=== PATIENT | male | born 1960 | race Two or more races ===

== ENCOUNTER 2019-12-05 15:05 | Inpatient (IN) | payer OTHER ==
[~2019-12-05] VITALS: Ht 175.3 cm; Wt 59.5 kg
[~2019-12-05 15:05] MED LIST: HYDR-1421 PO; IBUP-781 PO
[2019-12-05] MEDS ORDERED: ONDANSETRON HCL 4 MG/2 ML VIAL IV ONE (15:45)
[2019-12-05 15:49] LABS: Basophils # (auto) 0 10 ^3/uL (0-0.2); Basophils % (auto) 0.2 % (0.0-2.0); Eosinophils # (auto) 0 10 ^3/uL (0-0.8); Eosinophils % (auto) 0.2 % (0.0-7.0); Hematocrit 49.1 % (41.0-53.0); Hemoglobin 16.7 g/dL (13.5-17.5); Lymphocytes # (auto) 1.1 10 ^3/uL (0.4-5.4); Lymphocytes % (auto) 11.5 % (10.0-50.0); Mean Corpuscular Hemoglobin 33.2 pg (28.0-32.0); Mean Corpuscular Volume 97.6 fL (80.0-100.0); Monocytes # (auto) 0.5 10 ^3/uL (0-1.3); Monocytes % (auto) 4.9 % (0.0-12.0); Neutrophils # (auto) 7.9 10 ^3/uL (1.6-8.6); Neutrophils % (auto) 83.2 % (37.0-80.0); Nucleated Red Blood Cells % 0.5 %; Platelet Count (auto) 242 10^3/uL (140-450); Red Blood Cells 5.03 10^6/uL (4.5-5.90); Red Cell Distribution Width 13.8 % (11.8-14.3); White Blood Cell 9.5 10^3/uL (4.4-10.8)
[2019-12-05] MEDS ORDERED: cloNIDine HCL 0.1 MG TAB PO ONE (16:00)
[2019-12-05 16:10] LABS: Albumin 3.9 g/dL (3.4-5.0); Calcium 9.4 mg/dL (8.5-10.1); Potassium 3.6 mmol/L (3.5-5.1)
[2019-12-05 16:12] LABS: BUN/Creatinine Ratio 12.3
[2019-12-05 16:14] LABS: Bilirubin, Total 1.4 mg/dL (0.2-1.0); Total Protein 7.7 g/dL (6.4-8.2)
[2019-12-05 16:16] LABS: Magnesium 2.2 mg/dL (1.6-2.6)
[2019-12-05] MEDS ORDERED: SODIUM CHLORIDE 0.9% 1,000 ML IV SCH (16:41)
[2019-12-05] MEDS ORDERED: LORazepam 0.5 MG TAB PO PRN (16:45)
[2019-12-05] MEDS ORDERED: DOCUSATE SOD 100 MG CAP PO PRN (16:45)
[2019-12-05] MEDS ORDERED: hydrALAZINE HCL 20 MG/ML VL IV PRN ×2 (16:45→19:15)
[2019-12-05] MEDS ORDERED: METOPROLOL SUCCINATE XL 50 MG TAB PO ONE (16:45)
[2019-12-05] MEDS ORDERED: ALUM & MAG HYDROX-SIMETH LIQ(MAALOX) 30 ML PO PRN (16:45)
[2019-12-05] MEDS ORDERED: HYDROcodone-ACET 5/325MG TAB PO PRN (16:45)
[2019-12-05] MEDS ORDERED: ACETAMINOPHEN 325 MG TAB PO PRN ×2 (16:45→19:15)
[2019-12-05] MEDS ORDERED: LABETALOL HCL 5 MG/ML 4ML SYRINGE IV ONE (16:45)
[2019-12-05] MEDS ORDERED: NITROGLYCERIN 0.4 MG SL TAB SL PRN (16:45)
[2019-12-05] MEDS ORDERED: MORPHINE SULF INJ 2 MG/ML SYRINGE 1ML IV PRN (16:45)
[2019-12-05 17:26] LABS: Cholesterol 212 mg/dL (< 200)
[2019-12-05 17:29] LABS: HDL Cholesterol 46 mg/dL (40-59); LDL Cholesterol 144 mg/dL (< 100); Triglycerides 207 mg/dL (< 150)
[2019-12-05 18:46] LABS: Urine WBC None Seen /hpf (0 - 3)
[2019-12-05 19:12] LABS: Amphetamine Screen, Urine NEGATIVE (NEGATIVE); Barbiturate Scree,Urine NEGATIVE (NEGATIVE); Benzodiazephine Screen, Urine NEGATIVE (NEGATIVE); Cannabinoid Screen, Urine NEGATIVE (NEGATIVE); Cocaine Screen, Urine NEGATIVE (NEGATIVE); Opiate Scree,Urine POSITIVE (NEGATIVE); Phencyclidine Screen, Urine NEGATIVE (NEGATIVE); Urine Bacteria NONE SEEN /hpf (None Seen); Urine Blood Negative /uL (Negative); Urine Mucus FEW (None Seen); Urine Specific Gravity 1.025 (1.001-1.035)
[2019-12-05] MEDS ORDERED: LORazepam 2MG/ML-1ML VIAL IV PRN (19:15)
[2019-12-05] MEDS: ONDANSETRON HCL 4 MG/2 ML VIAL IV PRN (19:41)
[2019-12-05] MEDS ORDERED: SOD CHL 0.45% 1,000 ML IV SCH (22:00)
[2019-12-05] MEDS ORDERED: ATORVASTATIN 20 MG TAB PO SCH (22:00)
[2019-12-05] MEDS ORDERED: HYDR-531 PO (23:21)
[2019-12-05 23:45] VITALS: BP 149/103
[2019-12-06] VITALS (10 sets, daily range): BP systolic 146–177; BP diastolic 88–115
[2019-12-06] MEDS: ONDANSETRON HCL 4 MG/2 ML VIAL IV PRN ×2 (03:44→09:01)
[2019-12-06 07:23] LABS: Basophils # (auto) 0 10 ^3/uL (0-0.2); Basophils % (auto) 0.2 % (0.0-2.0); Eosinophils # (auto) 0 10 ^3/uL (0-0.8); Eosinophils % (auto) 0.4 % (0.0-7.0); Hematocrit 45.2 % (41.0-53.0); Hemoglobin 15.8 g/dL (13.5-17.5); Lymphocytes # (auto) 1.2 10 ^3/uL (0.4-5.4); Lymphocytes % (auto) 20.4 % (10.0-50.0); Mean Corpuscular Hemoglobin 33.8 pg (28.0-32.0); Mean Corpuscular Hgb Conc. 34.9 g/dL (32.0-36.0); Mean Corpuscular Volume 96.8 fL (80.0-100.0); Monocytes # (auto) 0.4 10 ^3/uL (0-1.3); Monocytes % (auto) 6.2 % (0.0-12.0); Neutrophils # (auto) 4.2 10 ^3/uL (1.6-8.6); Neutrophils % (auto) 72.8 % (37.0-80.0); Nucleated Red Blood Cells % 0.1 %; Platelet Count (auto) 218 10^3/uL (140-450); Red Blood Cells 4.67 10^6/uL (4.5-5.90); Red Cell Distribution Width 13.4 % (11.8-14.3); White Blood Cell 5.8 10^3/uL (4.4-10.8)
[2019-12-06 07:33] LABS: Albumin 3.6 g/dL (3.4-5.0); Calcium 8.8 mg/dL (8.5-10.1); Magnesium 2.3 mg/dL (1.6-2.6); Potassium 3.4 mmol/L (3.5-5.1)
[2019-12-06 07:38] LABS: BUN/Creatinine Ratio 16.7; Bilirubin, Total 1.8 mg/dL (0.2-1.0); Phosphorus 2.6 mg/dL (2.5-4.90); Total Protein 6.8 g/dL (6.4-8.2)
[2019-12-06] MEDS ORDERED: LORazepam 2MG/ML-1ML VIAL IV PRN (09:00)
[2019-12-06] MEDS: ASPirin-EC 81 mg tab PO SCH (10:59)
[2019-12-06] MEDS: METOPROLOL SUCCINATE XL 50 MG TAB PO SCH (10:59)
[2019-12-06] MEDS ORDERED: METOCLOPRAMIDE HCL 5MG/ml INJ 2ml VIAL IV ONE (11:30)
[2019-12-06] MEDS ORDERED: HCTZ 25 MG TAB PO ONE (12:30)
[2019-12-06] MEDS ORDERED: cloNIDine HCL 0.1 MG TAB PO PRN (12:30)
[2019-12-06] MEDS ORDERED: POTASSIUM CHL 20MEQ/100ML 100 ML IV ONE (12:30)
[2019-12-06] MEDS ORDERED: amLODIPine BESYLATE 5 MG TAB PO ONE (12:30)
[2019-12-06] MEDS ORDERED: LOSARTAN POTASSIUM 50 MG TAB PO ONE (12:30)
[2019-12-06] MEDS: ATORVASTATIN 20 MG TAB PO SCH (21:41)
[2019-12-07] MEDS: ONDANSETRON HCL 4 MG/2 ML VIAL IV PRN ×2 (03:23→21:25)
[2019-12-07] MEDS: MORPHINE SULF INJ 2 MG/ML SYRINGE 1ML IV PRN ×2 (03:31→21:25)
[2019-12-07 05:00] VITALS: BP 157/105
[2019-12-07 08:41] VITALS: BP 157/98
[2019-12-07] MEDS: ASPirin-EC 81 mg tab PO SCH (09:37)
[2019-12-07] MEDS: LOSARTAN POTASSIUM 50 MG TAB PO SCH (09:37)
[2019-12-07] MEDS: amLODIPine BESYLATE 5 MG TAB PO SCH (09:37)
[2019-12-07] MEDS: METOPROLOL SUCCINATE XL 50 MG TAB PO SCH (09:38)
[2019-12-07] MEDS ORDERED: HCTZ 25 MG TAB PO SCH (10:00)
[2019-12-07 12:50] VITALS: BP 146/102
[2019-12-07 16:40] VITALS: BP 148/98
[2019-12-07] MEDS: ATORVASTATIN 20 MG TAB PO SCH (21:24)
[2019-12-07 21:45] VITALS: BP 158/103
[2019-12-07] MEDS ORDERED: IV IMMUNE GLOBULIN(IVIG) 10% 20G/200ML IV SCH (22:00)
[2019-12-07] MEDS: SODIUM CHLORIDE 0.9% 1,000 ML IV SCH (22:15)
[2019-12-07] MEDS: IV IMMUNE GLOBULIN(IVIG) 10% 20G/200ML IV SCH (22:49)
[2019-12-08 01:47] VITALS: BP 158/103
[2019-12-08] MEDS: MORPHINE SULF INJ 2 MG/ML SYRINGE 1ML IV PRN ×4 (03:33→22:37)
[2019-12-08 04:36] VITALS: BP 154/105
[2019-12-08 06:36] LABS: Calcium 9.2 mg/dL (8.5-10.1); Potassium 3.4 mmol/L (3.5-5.1)
[2019-12-08 06:38] LABS: BUN/Creatinine Ratio 26.3
[2019-12-08 07:04] LABS: Basophils # (auto) 0 10 ^3/uL (0-0.2); Eosinophils # (auto) 0 10 ^3/uL (0-0.8); Eosinophils % (auto) 0.1 % (0.0-7.0); Hematocrit 52.9 % (41.0-53.0); Hemoglobin 18.1 g/dL (13.5-17.5); Lymphocytes # (auto) 0.8 10 ^3/uL (0.4-5.4); Lymphocytes % (auto) 4.8 % (10.0-50.0); Mean Corpuscular Hemoglobin 33.4 pg (28.0-32.0); Mean Corpuscular Hgb Conc. 34.2 g/dL (32.0-36.0); Mean Corpuscular Volume 97.6 fL (80.0-100.0); Monocytes # (auto) 1.1 10 ^3/uL (0-1.3); Monocytes % (auto) 7.2 % (0.0-12.0); Neutrophils # (auto) 13.9 10 ^3/uL (1.6-8.6); Neutrophils % (auto) 87.9 % (37.0-80.0); Platelet Count (auto) 256 10^3/uL (140-450); Red Blood Cells 5.42 10^6/uL (4.5-5.90); Red Cell Distribution Width 13.9 % (11.8-14.3); White Blood Cell 15.8 10^3/uL (4.4-10.8)
[2019-12-08] MEDS: SODIUM CHLORIDE 0.9% 1,000 ML IV SCH ×2 (07:15→18:14)
[2019-12-08] MEDS: ONDANSETRON HCL 4 MG/2 ML VIAL IV PRN ×2 (08:31→13:36)
[2019-12-08 09:00] VITALS: BP 149/99
[2019-12-08] MEDS: amLODIPine BESYLATE 5 MG TAB PO SCH (10:00)
[2019-12-08] MEDS: ASPirin-EC 81 mg tab PO SCH (10:00)
[2019-12-08] MEDS: LOSARTAN POTASSIUM 50 MG TAB PO SCH (10:00)
[2019-12-08] MEDS: METOPROLOL SUCCINATE XL 50 MG TAB PO SCH (10:00)
[2019-12-08 12:32] VITALS: BP 154/97
[2019-12-08] MEDS ORDERED: LABETALOL HCL 5 MG/ML 4ML SYRINGE IV PRN (13:00)
[2019-12-08 17:00] VITALS: BP 154/110
[2019-12-08 19:32] LABS: INR 1.08 (0.9-1.15)
[2019-12-08] MEDS: ATORVASTATIN 20 MG TAB PO SCH (21:46)
[2019-12-08 22:00] VITALS: BP 126/95
[2019-12-08] MEDS: IV IMMUNE GLOBULIN(IVIG) 10% 20G/200ML IV SCH (22:00)
[2019-12-09] MEDS: SODIUM CHLORIDE 0.9% 1,000 ML IV SCH ×2 (03:15→11:42)
[2019-12-09 05:00] VITALS: BP 130/85
[2019-12-09 05:22] LABS: Basophils # (auto) 0 10 ^3/uL (0-0.2); Basophils % (auto) 0.1 % (0.0-2.0); Eosinophils # (auto) 0 10 ^3/uL (0-0.8); Hematocrit 50.6 % (41.0-53.0); Hemoglobin 17.1 g/dL (13.5-17.5); Lymphocytes # (auto) 0.5 10 ^3/uL (0.4-5.4); Lymphocytes % (auto) 3.6 % (10.0-50.0); Mean Corpuscular Hgb Conc. 33.7 g/dL (32.0-36.0); Mean Corpuscular Volume 97.9 fL (80.0-100.0); Monocytes # (auto) 0.9 10 ^3/uL (0-1.3); Monocytes % (auto) 6.8 % (0.0-12.0); Neutrophils # (auto) 12.5 10 ^3/uL (1.6-8.6); Neutrophils % (auto) 89.5 % (37.0-80.0); Nucleated Red Blood Cells % 0.1 %; Platelet Count (auto) 231 10^3/uL (140-450); Red Blood Cells 5.16 10^6/uL (4.5-5.90); Red Cell Distribution Width 13.6 % (11.8-14.3)
[2019-12-09] MEDS: MORPHINE SULF INJ 2 MG/ML SYRINGE 1ML IV PRN ×2 (05:37→11:42)
[2019-12-09 05:39] LABS: BUN/Creatinine Ratio 35.4; Calcium 9.3 mg/dL (8.5-10.1); Potassium 3.5 mmol/L (3.5-5.1)
[2019-12-09 09:00] VITALS: BP 149/99
[2019-12-09] MEDS: LOSARTAN POTASSIUM 50 MG TAB PO SCH (09:11)
[2019-12-09] MEDS: amLODIPine BESYLATE 5 MG TAB PO SCH (09:12)
[2019-12-09] MEDS: METOPROLOL SUCCINATE XL 50 MG TAB PO SCH (09:12)
[2019-12-09 13:00] VITALS: BP 145/98
[2019-12-09] MEDS ORDERED: IOHEXOL 350 MG/ML 100ML IJ ONE (14:28)
[2019-12-09 15:41] LABS: INR 1.12 (0.9-1.15); Partial Thromboplastin Time 35.5 sec (23.0-31.2)
[2019-12-09] MEDS ORDERED: FUROSEMIDE 40 MG/4 ML VIAL IV ONE (16:45)
[2019-12-09 17:00] VITALS: BP 135/89
[2019-12-09] MEDS ORDERED: LIDOCAINE 2%HCL (LOCAL ANESTH.) INJ 10ml MDV IJ ONE ×2 (17:00→17:15)
[2019-12-09 18:45] LABS: Protein, CSF 75.8 mg/dL (15-45)
[2019-12-09 19:09] LABS: CSF White Blood Cells 1 CUMM (0-5)
[2019-12-09 20:00] VITALS: BP 144/102
[2019-12-09] MEDS: ATORVASTATIN 20 MG TAB PO SCH (22:00)
[2019-12-09] MEDS: MEROPENEM 1GM IVPB 100 ML IV SCH (22:20)
[2019-12-09] MEDS: IV IMMUNE GLOBULIN(IVIG) 10% 20G/200ML IV SCH (22:20)
[2019-12-10] VITALS (7 sets, daily range): BP systolic 122–168; BP diastolic 83–112
[2019-12-10] MEDS ORDERED: PHENYLEPHRINE INJ 40 MG in SODIUM CHL 0.9% 250 ML IV SCH (08:29)
[2019-12-10 09:08] LABS: Basophils # (auto) 0 10 ^3/uL (0-0.2); Basophils % (auto) 0.1 % (0.0-2.0); Eosinophils # (auto) 0 10 ^3/uL (0-0.8); Lymphocytes # (auto) 0.5 10 ^3/uL (0.4-5.4); Monocytes # (auto) 0.7 10 ^3/uL (0-1.3); Red Cell Distribution Width 13.9 % (11.8-14.3)
[2019-12-10 09:13] LABS: Eosinophils % (auto) 0.1 % (0.0-7.0); Hematocrit 50.1 % (41.0-53.0); Hemoglobin 17.5 g/dL (13.5-17.5); Lymphocytes % (auto) 3.8 % (10.0-50.0); Mean Corpuscular Hemoglobin 34.3 pg (28.0-32.0); Mean Corpuscular Volume 98.1 fL (80.0-100.0); Monocytes % (auto) 4.7 % (0.0-12.0); Neutrophils # (auto) 12.7 10 ^3/uL (1.6-8.6); Neutrophils % (auto) 91.3 % (37.0-80.0); Nucleated Red Blood Cells % 0.2 %; Platelet Count (auto) 236 10^3/uL (140-450); Red Blood Cells 5.11 10^6/uL (4.5-5.90); White Blood Cell 13.9 10^3/uL (4.4-10.8)
[2019-12-10 09:14] LABS: Calcium 9.5 mg/dL (8.5-10.1); Potassium 3.4 mmol/L (3.5-5.1)
[2019-12-10] MEDS: FUROSEMIDE 40 MG/4 ML VIAL IV SCH (09:27)
[2019-12-10] MEDS: MEROPENEM 1GM IVPB 100 ML IV SCH ×3 (09:28→21:40)
[2019-12-10] MEDS: ENOXAPARIN SOD 40 MG/0.4 ML SYRINGE SC SCH (09:28)
[2019-12-10] MEDS: PANTOPRAZOLE 40 MG/10 ML VIAL INJ IV SCH (09:28)
[2019-12-10] MEDS: LOSARTAN POTASSIUM 50 MG TAB PO SCH (09:29)
[2019-12-10] MEDS: METOPROLOL SUCCINATE XL 50 MG TAB PO SCH (09:29)
[2019-12-10] MEDS: amLODIPine BESYLATE 5 MG TAB PO SCH (09:30)
[2019-12-10] MEDS: ENALAPRILAT 1.25 MG/ML-1ML VIAL IV SCH ×2 (12:00→20:57)
[2019-12-10] MEDS: POTASSIUM CHL 20MEQ/100ML 100 ML IV SCH ×2 (12:01→16:45)
[2019-12-10] MEDS: ATORVASTATIN 20 MG TAB PO SCH (20:52)
[2019-12-10] MEDS: [UNRECOGNIZED DRUG - OTHER] IV SCH (21:37)
[2019-12-11] VITALS: BP 140/104
[2019-12-11] MEDS: ENALAPRILAT 1.25 MG/ML-1ML VIAL IV SCH ×4 (00:27→23:21)
[2019-12-11] MEDS: MORPHINE SULF INJ 2 MG/ML SYRINGE 1ML IV PRN ×2 (03:06→07:51)
[2019-12-11 03:09] LABS: Basophils # (auto) 0 10 ^3/uL (0-0.2); Eosinophils # (auto) 0 10 ^3/uL (0-0.8); Lymphocytes # (auto) 0.8 10 ^3/uL (0.4-5.4); Red Cell Distribution Width 13.9 % (11.8-14.3)
[2019-12-11 03:13] LABS: Basophils % (auto) 0.2 % (0.0-2.0); Hematocrit 44.8 % (41.0-53.0); Hemoglobin 15.8 g/dL (13.5-17.5); Mean Corpuscular Hemoglobin 34.7 pg (28.0-32.0); Mean Corpuscular Hgb Conc. 35.2 g/dL (32.0-36.0); Mean Corpuscular Volume 98.6 fL (80.0-100.0); Monocytes # (auto) 0.6 10 ^3/uL (0-1.3); Monocytes % (auto) 6.2 % (0.0-12.0); Neutrophils # (auto) 8.5 10 ^3/uL (1.6-8.6); Neutrophils % (auto) 85.6 % (37.0-80.0); Platelet Count (auto) 258 10^3/uL (140-450); Red Blood Cells 4.54 10^6/uL (4.5-5.90)
[2019-12-11 03:23] LABS: Albumin 2.5 g/dL (3.4-5.0); Calcium 8.8 mg/dL (8.5-10.1); Potassium 3.5 mmol/L (3.5-5.1)
[2019-12-11 03:27] LABS: BUN/Creatinine Ratio 43.7; Total Protein 8.6 g/dL (6.4-8.2)
[2019-12-11 04:00] VITALS: BP 127/90
[2019-12-11] MEDS: MEROPENEM 1GM IVPB 100 ML IV SCH (05:03)
[2019-12-11 08:00] VITALS: BP 152/97
[2019-12-11] MEDS ORDERED: PIPERACILLIN-TAZOB 3.375GM 100 ML IV ONE (09:30)
[2019-12-11] MEDS: PANTOPRAZOLE 40 MG/10 ML VIAL INJ IV SCH (10:42)
[2019-12-11] MEDS: ENOXAPARIN SOD 40 MG/0.4 ML SYRINGE SC SCH (10:42)
[2019-12-11] MEDS: FUROSEMIDE 40 MG/4 ML VIAL IV SCH (10:44)
[2019-12-11 12:00] VITALS: BP 140/97
[2019-12-11] MEDS ORDERED: TPN PER PHARMACY 0 ML IV SCH (12:00)
[2019-12-11 12:48] LABS: Magnesium 2.9 mg/dL (1.6-2.6); Phosphorus 2.8 mg/dL (2.5-4.90)
[2019-12-11] MEDS ORDERED: LIDOCAINE 1% (LOCAL ANESTH.) PF 5ml SDV ID ONE (15:00)
[2019-12-11 15:40] VITALS: BP 158/99
[2019-12-11] MEDS: PIPERACILLIN-TAZOB 3.375GM 100 ML IV SCH ×2 (17:37→23:21)
[2019-12-11] MEDS ORDERED: ARTIFICIAL TEARS 15ml EACHEYE PRN (19:15)
[2019-12-11 20:00] VITALS: BP 146/98
[2019-12-11] MEDS ORDERED: PPN PER PHARMACY IV NR ×7 (20:00)
[2019-12-11] MEDS: ATORVASTATIN 20 MG TAB PO SCH (21:50)
[2019-12-11] MEDS: SODIUM CHLOR 0.9% PF (SALINE LOCK) 10ML VIAL/SYR IV SCH (21:51)
[2019-12-11] MEDS: [UNRECOGNIZED DRUG - OTHER] IV SCH (22:00)
[2019-12-12] VITALS (34 sets, daily range): BP systolic 104–207; BP diastolic 74–134
[2019-12-12 04:26] LABS: Potassium 3.1 mmol/L (3.5-5.1)
[2019-12-12 04:33] LABS: Albumin 2.5 g/dL (3.4-5.0); Bilirubin, Total 0.9 mg/dL (0.2-1.0); Calcium 8.6 mg/dL (8.5-10.1); Magnesium 2.6 mg/dL (1.6-2.6); Phosphorus 2.8 mg/dL (2.5-4.90); Total Protein 9.4 g/dL (6.4-8.2)
[2019-12-12] MEDS: PIPERACILLIN-TAZOB 3.375GM 100 ML IV SCH ×4 (05:58→23:30)
[2019-12-12] MEDS: ENALAPRILAT 1.25 MG/ML-1ML VIAL IV SCH (06:00)
[2019-12-12] MEDS ORDERED: LABETALOL HCL 5 MG/ML 4ML SYRINGE IV PRN (08:30)
[2019-12-12] MEDS ORDERED: cloNIDine 0.1 mg/24hr 7 DAY PATCH TD SCH (08:30)
[2019-12-12] MEDS: PANTOPRAZOLE 40 MG/10 ML VIAL INJ IV SCH (10:57)
[2019-12-12] MEDS: SODIUM CHLOR 0.9% PF (SALINE LOCK) 10ML VIAL/SYR IV SCH ×2 (10:57→22:23)
[2019-12-12] MEDS: POTASSIUM CHL 20MEQ/100ML 100 ML IV SCH ×2 (11:20→13:52)
[2019-12-12] MEDS ORDERED: DEXTROSE (50%) 50ML SYRG IV SCH (12:00)
[2019-12-12] MEDS ORDERED: ENALAPRILAT 1.25 MG/ML-1ML VIAL IV SCH (12:00)
[2019-12-12] MEDS: ACCU-CHEK COMFORT CURVE STRIP VI SCH ×3 (12:00→23:29)
[2019-12-12] MEDS ORDERED: ETOMIDATE (2MG/ML) 20ML VIAL IV ONE ×2 (12:19→13:45)
[2019-12-12] MEDS ORDERED: ROCURONIUM 10MG/ML 10ML VIAL IV ONE ×2 (12:19→13:45)
[2019-12-12] MEDS ORDERED: NOREPINEPHRINE 8 MG/250ML KIT 250 ML IV ONE (12:20)
[2019-12-12] MEDS ORDERED: PROPOFOL 100 ML IV ONE ×2 (12:20)
[2019-12-12] MEDS ORDERED: ENALAPRILAT 1.25 MG/ML-1ML VIAL IV ONE (13:30)
[2019-12-12] MEDS ORDERED: LABETALOL HCL 5 MG/ML 4ML SYRINGE IV ONE (13:30)
[2019-12-12] MEDS ORDERED: LABETALOL INJECTION 250 MG in SODIUM CHL 0.9% 200 ML IV ONE (13:45)
[2019-12-12] MEDS: ENOXAPARIN SOD 40 MG/0.4 ML SYRINGE SC SCH (13:51)
[2019-12-12] MEDS: InsuLIN REG 1unit/0.01ml Soln (100units/ml) SC SCH ×3 (14:12→23:53)
[2019-12-12] MEDS ORDERED: SODIUM CHLORIDE 0.9% 2,000 ML IV ONE (14:45)
[2019-12-12] MEDS: NOREPINEPHRINE 8 MG/250ML KIT 250 ML IV SCH (17:29)
[2019-12-12] MEDS: PROPOFOL 100 ML IV SCH ×2 (17:29→23:28)
[2019-12-12] MEDS: TPN PER PHARMACY IV NR ×8 (20:05)
[2019-12-12] MEDS: ATORVASTATIN 20 MG TAB PO SCH (22:22)
[2019-12-12] MEDS: MORPHINE SULF INJ 2 MG/ML SYRINGE 1ML IV PRN (23:19)
[2019-12-13] VITALS (101 sets, daily range): BP systolic 66–147; BP diastolic 37–91
[2019-12-13] MEDS: PROPOFOL 100 ML IV SCH ×4 (04:38→20:24)
[2019-12-13] MEDS: MORPHINE SULF INJ 2 MG/ML SYRINGE 1ML IV PRN (04:44)
[2019-12-13] MEDS: PIPERACILLIN-TAZOB 3.375GM 100 ML IV SCH ×4 (05:37→23:48)
[2019-12-13 05:55] LABS: Basophils # (auto) 0 10 ^3/uL (0-0.2); Basophils % (auto) 0.4 % (0.0-2.0); Eosinophils # (auto) 0 10 ^3/uL (0-0.8); Eosinophils % (auto) 0.4 % (0.0-7.0); Hematocrit 38.6 % (41.0-53.0); Hemoglobin 13.1 g/dL (13.5-17.5); Lymphocytes # (auto) 1.1 10 ^3/uL (0.4-5.4); Lymphocytes % (auto) 16.8 % (10.0-50.0); Mean Corpuscular Hemoglobin 33.9 pg (28.0-32.0); Mean Corpuscular Volume 99.7 fL (80.0-100.0); Monocytes # (auto) 0.6 10 ^3/uL (0-1.3); Monocytes % (auto) 9.8 % (0.0-12.0); Neutrophils # (auto) 4.6 10 ^3/uL (1.6-8.6); Neutrophils % (auto) 72.6 % (37.0-80.0); Platelet Count (auto) 205 10^3/uL (140-450); Red Blood Cells 3.87 10^6/uL (4.5-5.90); Red Cell Distribution Width 13.6 % (11.8-14.3); White Blood Cell 6.4 10^3/uL (4.4-10.8)
[2019-12-13] MEDS: InsuLIN REG 1unit/0.01ml Soln (100units/ml) SC SCH ×4 (06:00→23:58)
[2019-12-13 06:10] LABS: Potassium 3.3 mmol/L (3.5-5.1)
[2019-12-13] MEDS: ACCU-CHEK COMFORT CURVE STRIP VI SCH ×4 (06:11→23:58)
[2019-12-13 06:29] LABS: Albumin 1.9 g/dL (3.4-5.0); BUN/Creatinine Ratio 34.8; Bilirubin, Total 0.6 mg/dL (0.2-1.0); Calcium 7.7 mg/dL (8.5-10.1); Magnesium 2.4 mg/dL (1.6-2.6); Phosphorus 2.9 mg/dL (2.5-4.90); Pre Albumin 10.4 mg/dL (20.0-40.0); Total Protein 7.1 g/dL (6.4-8.2)
[2019-12-13] MEDS: POTASSIUM CHL 20MEQ/100ML 100 ML IV SCH ×2 (09:56→11:02)
[2019-12-13] MEDS: SODIUM CHLOR 0.9% PF (SALINE LOCK) 10ML VIAL/SYR IV SCH ×2 (11:02→22:00)
[2019-12-13] MEDS: ENOXAPARIN SOD 40 MG/0.4 ML SYRINGE SC SCH (11:02)
[2019-12-13] MEDS: SODIUM CHLORIDE 0.9% 1,000 ML IV SCH (11:05)
[2019-12-13] MEDS: PANTOPRAZOLE 40 MG/10 ML VIAL INJ IV SCH (11:46)
[2019-12-13] MEDS: NOREPINEPHRINE 8 MG/250ML KIT 250 ML IV SCH (13:33)
[2019-12-13] MEDS: TPN PER PHARMACY IV NR ×16 (19:54→20:18)
[2019-12-13] MEDS ORDERED: MIDAZOLAM DRIP 50 mg/50mL 50 ML IV ONE (20:42)
[2019-12-13] MEDS: MIDAZOLAM DRIP 50 mg/50mL 50 ML IV SCH (20:50)
[2019-12-13] MEDS: ATORVASTATIN 20 MG TAB PO SCH (23:48)
[2019-12-14] VITALS (97 sets, daily range): BP systolic 81–190; BP diastolic 43–116
[2019-12-14] MEDS: MIDAZOLAM DRIP 50 mg/50mL 50 ML IV SCH ×5 (00:22→22:58)
[2019-12-14] MEDS: PROPOFOL 100 ML IV SCH ×5 (00:24→20:45)
[2019-12-14] MEDS: SODIUM CHLORIDE 0.9% 1,000 ML IV SCH ×2 (02:40→19:20)
[2019-12-14 05:01] LABS: Basophils # (auto) 0 10 ^3/uL (0-0.2); Basophils % (auto) 0.3 % (0.0-2.0); Eosinophils # (auto) 0.1 10 ^3/uL (0-0.8); Eosinophils % (auto) 0.7 % (0.0-7.0); Hematocrit 38.5 % (41.0-53.0); Lymphocytes # (auto) 1.3 10 ^3/uL (0.4-5.4); Lymphocytes % (auto) 14.4 % (10.0-50.0); Mean Corpuscular Hemoglobin 33.6 pg (28.0-32.0); Mean Corpuscular Hgb Conc. 33.9 g/dL (32.0-36.0); Mean Corpuscular Volume 99.3 fL (80.0-100.0); Monocytes # (auto) 0.7 10 ^3/uL (0-1.3); Monocytes % (auto) 7.9 % (0.0-12.0); Neutrophils # (auto) 6.7 10 ^3/uL (1.6-8.6); Neutrophils % (auto) 76.7 % (37.0-80.0); Platelet Count (auto) 198 10^3/uL (140-450); Red Blood Cells 3.88 10^6/uL (4.5-5.90); Red Cell Distribution Width 13.5 % (11.8-14.3); White Blood Cell 8.7 10^3/uL (4.4-10.8)
[2019-12-14 05:25] LABS: Albumin 1.9 g/dL (3.4-5.0); Calcium 7.7 mg/dL (8.5-10.1); Magnesium 2.1 mg/dL (1.6-2.6); Potassium 3.7 mmol/L (3.5-5.1)
[2019-12-14 05:29] LABS: BUN/Creatinine Ratio 22.6; Bilirubin, Total 0.5 mg/dL (0.2-1.0); Phosphorus 2.4 mg/dL (2.5-4.90); Total Protein 6.8 g/dL (6.4-8.2)
[2019-12-14] MEDS: PIPERACILLIN-TAZOB 3.375GM 100 ML IV SCH ×3 (06:00→17:52)
[2019-12-14] MEDS: InsuLIN REG 1unit/0.01ml Soln (100units/ml) SC SCH ×3 (06:00→17:54)
[2019-12-14] MEDS: ACCU-CHEK COMFORT CURVE STRIP VI SCH ×3 (06:00→17:57)
[2019-12-14 09:21] LABS: INR 1.13 (0.9-1.15); Partial Thromboplastin Time 32.9 sec (23.0-31.2)
[2019-12-14] MEDS ORDERED: SODIUM PHOSP 20MEQ(15MMOL) IN NS 100 ML IV ONE (10:00)
[2019-12-14] MEDS: PANTOPRAZOLE 40 MG/10 ML VIAL INJ IV SCH (10:26)
[2019-12-14] MEDS: SODIUM CHLOR 0.9% PF (SALINE LOCK) 10ML VIAL/SYR IV SCH ×2 (10:26→22:00)
[2019-12-14] MEDS: fentaNYL Drip 2500mCg/250mlNS 250 ML IV SCH (16:58)
[2019-12-14] MEDS: NOREPINEPHRINE 8 MG/250ML KIT 250 ML IV SCH (17:58)
[2019-12-14] MEDS: TPN PER PHARMACY IV NR ×8 (19:59)
[2019-12-14] MEDS ORDERED: TPN PER PHARMACY IV NR ×10 (20:00)
[2019-12-14] MEDS: ATORVASTATIN 20 MG TAB PO SCH (22:00)
[2019-12-15] VITALS (86 sets, daily range): BP systolic 96–141; BP diastolic 56–89
[2019-12-15] MEDS: SODIUM CHLORIDE 0.9% 1,000 ML IV SCH (00:01)
[2019-12-15] MEDS: PIPERACILLIN-TAZOB 3.375GM 100 ML IV SCH ×5 (00:21→23:35)
[2019-12-15] MEDS: ACCU-CHEK COMFORT CURVE STRIP VI SCH ×4 (00:22→17:11)
[2019-12-15] MEDS: InsuLIN REG 1unit/0.01ml Soln (100units/ml) SC SCH ×4 (00:27→17:33)
[2019-12-15] MEDS: MIDAZOLAM DRIP 50 mg/50mL 50 ML IV SCH ×4 (03:25→21:05)
[2019-12-15 04:22] LABS: Basophils # (auto) 0 10 ^3/uL (0-0.2); Basophils % (auto) 0.6 % (0.0-2.0); Eosinophils # (auto) 0.1 10 ^3/uL (0-0.8); Eosinophils % (auto) 1.1 % (0.0-7.0); Hematocrit 36.8 % (41.0-53.0); Hemoglobin 12.6 g/dL (13.5-17.5); Lymphocytes # (auto) 1.1 10 ^3/uL (0.4-5.4); Lymphocytes % (auto) 15.2 % (10.0-50.0); Mean Corpuscular Hemoglobin 33.9 pg (28.0-32.0); Mean Corpuscular Hgb Conc. 34.3 g/dL (32.0-36.0); Mean Corpuscular Volume 98.7 fL (80.0-100.0); Monocytes # (auto) 0.5 10 ^3/uL (0-1.3); Monocytes % (auto) 7.1 % (0.0-12.0); Neutrophils # (auto) 5.3 10 ^3/uL (1.6-8.6); Platelet Count (auto) 170 10^3/uL (140-450); Red Blood Cells 3.73 10^6/uL (4.5-5.90); Red Cell Distribution Width 13.6 % (11.8-14.3)
[2019-12-15 04:40] LABS: Albumin 1.7 g/dL (3.4-5.0); Calcium 7.7 mg/dL (8.5-10.1); Magnesium 1.9 mg/dL (1.6-2.6); Potassium 4.2 mmol/L (3.5-5.1)
[2019-12-15 04:43] LABS: BUN/Creatinine Ratio 24.1
[2019-12-15 04:45] LABS: Bilirubin, Total 0.6 mg/dL (0.2-1.0); Phosphorus 3.1 mg/dL (2.5-4.90); Total Protein 6.4 g/dL (6.4-8.2)
[2019-12-15] MEDS ORDERED: PROPOFOL 100 ML IV ONE (05:52)
[2019-12-15] MEDS: PROPOFOL 100 ML IV SCH ×3 (05:56→23:35)
[2019-12-15] MEDS ORDERED: FLUCONAZOLE 200MG/100ML 100 ML IV ONE (08:00)
[2019-12-15] MEDS: SODIUM CHLOR 0.9% PF (SALINE LOCK) 10ML VIAL/SYR IV SCH ×2 (08:40→22:12)
[2019-12-15] MEDS: PANTOPRAZOLE 40 MG/10 ML VIAL INJ IV SCH (08:40)
[2019-12-15] MEDS ORDERED: ENOXAPARIN SOD 40 MG/0.4 ML SYRINGE SC ONE (12:45)
[2019-12-15] MEDS: NOREPINEPHRINE 8 MG/250ML KIT 250 ML IV SCH (17:29)
[2019-12-15] MEDS ORDERED: TPN PER PHARMACY IV NR ×10 (20:00)
[2019-12-15] MEDS: ATORVASTATIN 20 MG TAB PO SCH (22:12)
[2019-12-16] VITALS (106 sets, daily range): BP systolic 91–172; BP diastolic 58–112
[2019-12-16] MEDS: ACCU-CHEK COMFORT CURVE STRIP VI SCH ×4 (00:11→18:00)
[2019-12-16 04:20] LABS: Basophils # (auto) 0 10 ^3/uL (0-0.2); Basophils % (auto) 0.3 % (0.0-2.0); Eosinophils # (auto) 0.1 10 ^3/uL (0-0.8); Eosinophils % (auto) 1.1 % (0.0-7.0); Hemoglobin 11.7 g/dL (13.5-17.5); Lymphocytes # (auto) 1.1 10 ^3/uL (0.4-5.4); Lymphocytes % (auto) 13.3 % (10.0-50.0); Mean Corpuscular Hemoglobin 33.4 pg (28.0-32.0); Mean Corpuscular Hgb Conc. 33.5 g/dL (32.0-36.0); Mean Corpuscular Volume 99.8 fL (80.0-100.0); Monocytes # (auto) 0.6 10 ^3/uL (0-1.3); Monocytes % (auto) 7.6 % (0.0-12.0); Neutrophils # (auto) 6.2 10 ^3/uL (1.6-8.6); Neutrophils % (auto) 77.7 % (37.0-80.0); Platelet Count (auto) 179 10^3/uL (140-450); Red Blood Cells 3.51 10^6/uL (4.5-5.90); Red Cell Distribution Width 13.8 % (11.8-14.3)
[2019-12-16 04:39] LABS: Potassium 4.2 mmol/L (3.5-5.1)
[2019-12-16 04:41] LABS: BUN/Creatinine Ratio 14.9
[2019-12-16] MEDS: PIPERACILLIN-TAZOB 3.375GM 100 ML IV SCH ×3 (05:59→18:00)
[2019-12-16] MEDS: InsuLIN REG 1unit/0.01ml Soln (100units/ml) SC SCH ×4 (06:00→18:00)
[2019-12-16] MEDS: PROPOFOL 100 ML IV SCH (07:12)
[2019-12-16] MEDS: PANTOPRAZOLE 40 MG/10 ML VIAL INJ IV SCH (09:44)
[2019-12-16] MEDS: FLUCONAZOLE 200MG/100ML 100 ML IV SCH (09:45)
[2019-12-16] MEDS: ENOXAPARIN SOD 40 MG/0.4 ML SYRINGE SC SCH (09:45)
[2019-12-16] MEDS: SODIUM CHLOR 0.9% PF (SALINE LOCK) 10ML VIAL/SYR IV SCH ×2 (09:52→21:09)
[2019-12-16] MEDS: BISACODYL 10 MG RECT SUPP PR PRN (15:39)
[2019-12-16] MEDS: NOREPINEPHRINE 8 MG/250ML KIT 250 ML IV SCH (17:29)
[2019-12-16] MEDS: DOCUSATE ORAL LIQUID 100 MG/10 ML UD GT SCH (21:08)
[2019-12-16] MEDS: ATORVASTATIN 20 MG TAB PO SCH (21:08)
[2019-12-17] VITALS (104 sets, daily range): BP systolic 107–171; BP diastolic 65–110
[2019-12-17] MEDS: PIPERACILLIN-TAZOB 3.375GM 100 ML IV SCH ×4 (00:23→17:20)
[2019-12-17] MEDS: ACCU-CHEK COMFORT CURVE STRIP VI SCH ×4 (00:25→17:21)
[2019-12-17] MEDS: MIDAZOLAM DRIP 50 mg/50mL 50 ML IV SCH (03:26)
[2019-12-17] MEDS: InsuLIN REG 1unit/0.01ml Soln (100units/ml) SC SCH ×4 (05:46→17:21)
[2019-12-17] MEDS: fentaNYL Drip 2500mCg/250mlNS 250 ML IV SCH ×2 (05:53→16:27)
[2019-12-17 08:37] LABS: Basophils # (auto) 0 10 ^3/uL (0-0.2); Basophils % (auto) 0.5 % (0.0-2.0); Eosinophils # (auto) 0.1 10 ^3/uL (0-0.8); Eosinophils % (auto) 1.1 % (0.0-7.0); Hematocrit 40.9 % (41.0-53.0); Hemoglobin 13.7 g/dL (13.5-17.5); Lymphocytes # (auto) 0.9 10 ^3/uL (0.4-5.4); Lymphocytes % (auto) 12.6 % (10.0-50.0); Mean Corpuscular Hemoglobin 33.4 pg (28.0-32.0); Mean Corpuscular Hgb Conc. 33.5 g/dL (32.0-36.0); Mean Corpuscular Volume 99.9 fL (80.0-100.0); Monocytes # (auto) 0.6 10 ^3/uL (0-1.3); Monocytes % (auto) 8.5 % (0.0-12.0); Neutrophils # (auto) 5.7 10 ^3/uL (1.6-8.6); Neutrophils % (auto) 77.3 % (37.0-80.0); Platelet Count (auto) 198 10^3/uL (140-450); Red Blood Cells 4.09 10^6/uL (4.5-5.90); Red Cell Distribution Width 13.8 % (11.8-14.3); White Blood Cell 7.4 10^3/uL (4.4-10.8)
[2019-12-17 08:51] LABS: BUN/Creatinine Ratio 22.7; Calcium 8.5 mg/dL (8.5-10.1); Potassium 3.8 mmol/L (3.5-5.1)
[2019-12-17] MEDS: PANTOPRAZOLE 40 MG/10 ML VIAL INJ IV SCH (09:27)
[2019-12-17] MEDS: SODIUM CHLOR 0.9% PF (SALINE LOCK) 10ML VIAL/SYR IV SCH ×2 (09:27→21:47)
[2019-12-17] MEDS: ENOXAPARIN SOD 40 MG/0.4 ML SYRINGE SC SCH (09:27)
[2019-12-17] MEDS: DOCUSATE ORAL LIQUID 100 MG/10 ML UD GT SCH ×2 (09:27→21:47)
[2019-12-17] MEDS: BISACODYL 10 MG RECT SUPP PR PRN (09:27)
[2019-12-17] MEDS: FLUCONAZOLE 200MG/100ML 100 ML IV SCH (09:27)
[2019-12-17] MEDS: MILK OF MAGNESIA 30ML SUSP PO PRN (13:43)
[2019-12-17] MEDS: NOREPINEPHRINE 8 MG/250ML KIT 250 ML IV SCH (17:05)
[2019-12-17] MEDS: ATORVASTATIN 20 MG TAB PO SCH (21:47)
[2019-12-18] VITALS (104 sets, daily range): BP systolic 76–173; BP diastolic 41–113
[2019-12-18] MEDS: PROPOFOL 100 ML IV SCH ×2 (00:11→16:44)
[2019-12-18] MEDS: ACCU-CHEK COMFORT CURVE STRIP VI SCH ×5 (00:27→23:47)
[2019-12-18] MEDS: PIPERACILLIN-TAZOB 3.375GM 100 ML IV SCH ×5 (00:27→23:46)
[2019-12-18] MEDS: fentaNYL Drip 2500mCg/250mlNS 250 ML IV SCH ×2 (02:30→16:27)
[2019-12-18 05:07] LABS: Basophils # (auto) 0 10 ^3/uL (0-0.2); Basophils % (auto) 0.4 % (0.0-2.0); Eosinophils # (auto) 0.1 10 ^3/uL (0-0.8); Eosinophils % (auto) 1.2 % (0.0-7.0); Hematocrit 39.2 % (41.0-53.0); Hemoglobin 13.1 g/dL (13.5-17.5); Lymphocytes % (auto) 13.9 % (10.0-50.0); Mean Corpuscular Hemoglobin 33.5 pg (28.0-32.0); Mean Corpuscular Hgb Conc. 33.4 g/dL (32.0-36.0); Mean Corpuscular Volume 100.4 fL (80.0-100.0); Monocytes # (auto) 0.5 10 ^3/uL (0-1.3); Monocytes % (auto) 6.9 % (0.0-12.0); Neutrophils # (auto) 5.7 10 ^3/uL (1.6-8.6); Neutrophils % (auto) 77.6 % (37.0-80.0); Nucleated Red Blood Cells % 0.1 %; Platelet Count (auto) 199 10^3/uL (140-450); Red Cell Distribution Width 13.8 % (11.8-14.3); White Blood Cell 7.3 10^3/uL (4.4-10.8)
[2019-12-18 05:46] LABS: Calcium 8.4 mg/dL (8.5-10.1); Potassium 4.3 mmol/L (3.5-5.1)
[2019-12-18] MEDS: InsuLIN REG 1unit/0.01ml Soln (100units/ml) SC SCH ×5 (06:00→23:46)
[2019-12-18] MEDS: MIDAZOLAM DRIP 50 mg/50mL 50 ML IV SCH (08:29)
[2019-12-18] MEDS: NOREPINEPHRINE 8 MG/250ML KIT 250 ML IV SCH (08:34)
[2019-12-18] MEDS ORDERED: MILK OF MAGNESIA 30ML SUSP PO SCH (10:00)
[2019-12-18] MEDS: FLUCONAZOLE 200MG/100ML 100 ML IV SCH (10:17)
[2019-12-18] MEDS: PANTOPRAZOLE 40 MG/10 ML VIAL INJ IV SCH (10:18)
[2019-12-18] MEDS: DOCUSATE ORAL LIQUID 100 MG/10 ML UD GT SCH ×2 (10:18→22:00)
[2019-12-18] MEDS: SODIUM CHLOR 0.9% PF (SALINE LOCK) 10ML VIAL/SYR IV SCH ×2 (10:18→22:00)
[2019-12-18] MEDS: ENOXAPARIN SOD 40 MG/0.4 ML SYRINGE SC SCH (10:18)
[2019-12-18] MEDS: METOCLOPRAMIDE HCL 5MG/ml INJ 2ml VIAL IV SCH ×2 (14:30→22:00)
[2019-12-18] MEDS: DexMEDEtomidine 400 MCG in D5W 5% 96 ML IV SCH (15:45)
[2019-12-18] MEDS: ATORVASTATIN 20 MG TAB PO SCH (22:00)
[2019-12-19] VITALS (77 sets, daily range): BP systolic 82–181; BP diastolic 42–156
[2019-12-19] MEDS: DexMEDEtomidine 400 MCG in D5W 5% 96 ML IV SCH (03:00)
[2019-12-19] MEDS: PROPOFOL 100 ML IV SCH ×4 (03:00→22:03)
[2019-12-19] MEDS: METOCLOPRAMIDE HCL 5MG/ml INJ 2ml VIAL IV SCH ×3 (06:00→21:32)
[2019-12-19] MEDS: DOCUSATE ORAL LIQUID 100 MG/10 ML UD GT SCH ×2 (09:56→21:32)
[2019-12-19] MEDS: FLUCONAZOLE 200MG/100ML 100 ML IV SCH (09:56)
[2019-12-19] MEDS: SODIUM CHLOR 0.9% PF (SALINE LOCK) 10ML VIAL/SYR IV SCH ×2 (09:58→21:32)
[2019-12-19] MEDS: PANTOPRAZOLE 40 MG/10 ML VIAL INJ IV SCH (09:58)
[2019-12-19] MEDS: ENOXAPARIN SOD 40 MG/0.4 ML SYRINGE SC SCH (09:58)
[2019-12-19] MEDS: Osmolite 1.2 Cal One Liter GT SCH (10:30)
[2019-12-19] MEDS: fentaNYL Drip 2500mCg/250mlNS 250 ML IV SCH (11:00)
[2019-12-19] MEDS: InsuLIN REG 1unit/0.01ml Soln (100units/ml) SC SCH ×4 (11:45→23:59)
[2019-12-19] MEDS: ACCU-CHEK COMFORT CURVE STRIP VI SCH ×4 (11:45→23:59)
[2019-12-19] MEDS: PIPERACILLIN-TAZOB 3.375GM 100 ML IV SCH ×4 (11:45→23:58)
[2019-12-19] MEDS: MIDAZOLAM DRIP 50 mg/50mL 50 ML IV SCH ×4 (11:46→23:59)
[2019-12-19] MEDS: NOREPINEPHRINE 8 MG/250ML KIT 250 ML IV SCH (17:02)
[2019-12-19] MEDS: ATORVASTATIN 20 MG TAB PO SCH (21:32)
[2019-12-20] VITALS (103 sets, daily range): BP systolic 86–143; BP diastolic 48–90
[2019-12-20] MEDS: fentaNYL Drip 2500mCg/250mlNS 250 ML IV SCH ×2 (03:30→18:30)
[2019-12-20 04:09] LABS: Basophils # (auto) 0 10 ^3/uL (0-0.2); Basophils % (auto) 0.5 % (0.0-2.0); Eosinophils # (auto) 0.1 10 ^3/uL (0-0.8); Eosinophils % (auto) 1.4 % (0.0-7.0); Hematocrit 35.8 % (41.0-53.0); Hemoglobin 12.4 g/dL (13.5-17.5); Lymphocytes # (auto) 1.5 10 ^3/uL (0.4-5.4); Lymphocytes % (auto) 17.9 % (10.0-50.0); Mean Corpuscular Hemoglobin 34.4 pg (28.0-32.0); Mean Corpuscular Hgb Conc. 34.7 g/dL (32.0-36.0); Monocytes # (auto) 0.6 10 ^3/uL (0-1.3); Monocytes % (auto) 7.5 % (0.0-12.0); Neutrophils % (auto) 72.7 % (37.0-80.0); Platelet Count (auto) 256 10^3/uL (140-450); Red Blood Cells 3.61 10^6/uL (4.5-5.90); Red Cell Distribution Width 13.6 % (11.8-14.3); White Blood Cell 8.3 10^3/uL (4.4-10.8)
[2019-12-20 04:29] LABS: Potassium 3.5 mmol/L (3.5-5.1)
[2019-12-20 04:37] LABS: Albumin 2.1 g/dL (3.4-5.0); BUN/Creatinine Ratio 23.3; Bilirubin, Total 0.4 mg/dL (0.2-1.0); Calcium 8.2 mg/dL (8.5-10.1); Total Protein 6.7 g/dL (6.4-8.2)
[2019-12-20] MEDS: ACCU-CHEK COMFORT CURVE STRIP VI SCH ×4 (05:46→23:58)
[2019-12-20] MEDS: InsuLIN REG 1unit/0.01ml Soln (100units/ml) SC SCH ×4 (05:46→23:58)
[2019-12-20] MEDS: PIPERACILLIN-TAZOB 3.375GM 100 ML IV SCH ×4 (05:46→23:58)
[2019-12-20] MEDS: METOCLOPRAMIDE HCL 5MG/ml INJ 2ml VIAL IV SCH ×3 (06:00→22:28)
[2019-12-20] MEDS: FLUCONAZOLE 200MG/100ML 100 ML IV SCH (09:42)
[2019-12-20] MEDS: DOCUSATE ORAL LIQUID 100 MG/10 ML UD GT SCH ×2 (09:42→22:28)
[2019-12-20] MEDS: PANTOPRAZOLE 40 MG/10 ML VIAL INJ IV SCH (09:42)
[2019-12-20] MEDS: SODIUM CHLOR 0.9% PF (SALINE LOCK) 10ML VIAL/SYR IV SCH ×2 (09:43→22:29)
[2019-12-20] MEDS: ENOXAPARIN SOD 40 MG/0.4 ML SYRINGE SC SCH (09:44)
[2019-12-20] MEDS: DexMEDEtomidine 400 MCG in D5W 5% 96 ML IV SCH (13:16)
[2019-12-20] MEDS: MIDAZOLAM DRIP 50 mg/50mL 50 ML IV SCH (16:09)
[2019-12-20] MEDS: NOREPINEPHRINE 8 MG/250ML KIT 250 ML IV SCH (17:29)
[2019-12-20] MEDS: PROPOFOL 100 ML IV SCH (18:19)
[2019-12-20] MEDS: ATORVASTATIN 20 MG TAB PO SCH (22:29)
[2019-12-21] VITALS (107 sets, daily range): BP systolic 91–152; BP diastolic 57–95
[2019-12-21] MEDS: PROPOFOL 100 ML IV SCH ×3 (02:16→17:39)
[2019-12-21 06:00] LABS: Basophils # (auto) 0.1 10 ^3/uL (0-0.2); Basophils % (auto) 0.5 % (0.0-2.0); Eosinophils # (auto) 0.1 10 ^3/uL (0-0.8); Eosinophils % (auto) 1.4 % (0.0-7.0); Hematocrit 35.4 % (41.0-53.0); Hemoglobin 12.4 g/dL (13.5-17.5); Lymphocytes % (auto) 9.8 % (10.0-50.0); Mean Corpuscular Hemoglobin 34.8 pg (28.0-32.0); Mean Corpuscular Volume 99.4 fL (80.0-100.0); Monocytes # (auto) 0.5 10 ^3/uL (0-1.3); Monocytes % (auto) 5.3 % (0.0-12.0); Neutrophils # (auto) 8.3 10 ^3/uL (1.6-8.6); Nucleated Red Blood Cells % 0.1 %; Platelet Count (auto) 248 10^3/uL (140-450); Red Blood Cells 3.56 10^6/uL (4.5-5.90); Red Cell Distribution Width 13.6 % (11.8-14.3)
[2019-12-21] MEDS: InsuLIN REG 1unit/0.01ml Soln (100units/ml) SC SCH ×4 (06:00→23:58)
[2019-12-21] MEDS: ACCU-CHEK COMFORT CURVE STRIP VI SCH ×4 (06:07→23:58)
[2019-12-21] MEDS: PIPERACILLIN-TAZOB 3.375GM 100 ML IV SCH ×4 (06:07→23:59)
[2019-12-21] MEDS: METOCLOPRAMIDE HCL 5MG/ml INJ 2ml VIAL IV SCH ×3 (06:07→22:10)
[2019-12-21 06:18] LABS: Potassium 3.5 mmol/L (3.5-5.1)
[2019-12-21 06:24] LABS: BUN/Creatinine Ratio 33.3; Bilirubin, Total 0.5 mg/dL (0.2-1.0); Total Protein 6.5 g/dL (6.4-8.2)
[2019-12-21] MEDS: MIDAZOLAM DRIP 50 mg/50mL 50 ML IV SCH (07:39)
[2019-12-21] MEDS ORDERED: DOXYCYCLINE 100 MG TAB/CAP GT ONE (09:30)
[2019-12-21] MEDS: PANTOPRAZOLE 40 MG/10 ML VIAL INJ IV SCH (09:43)
[2019-12-21] MEDS: DOCUSATE ORAL LIQUID 100 MG/10 ML UD GT SCH ×2 (09:44→22:10)
[2019-12-21] MEDS: FLUCONAZOLE 200MG/100ML 100 ML IV SCH (09:44)
[2019-12-21] MEDS: SODIUM CHLOR 0.9% PF (SALINE LOCK) 10ML VIAL/SYR IV SCH ×2 (09:44→22:10)
[2019-12-21] MEDS: ENOXAPARIN SOD 40 MG/0.4 ML SYRINGE SC SCH (09:44)
[2019-12-21] MEDS: fentaNYL Drip 2500mCg/250mlNS 250 ML IV SCH (09:47)
[2019-12-21 09:51] LABS: Urine Bacteria FEW /hpf (None Seen); Urine Blood TRACE /uL (Negative); Urine Hyaline Cast FEW /lpf (0 - 2); Urine Specific Gravity 1.037 (1.001-1.035); Urine WBC 8 /hpf (0 - 3)
[2019-12-21] MEDS: DexMEDEtomidine 400 MCG in D5W 5% 96 ML IV SCH (13:16)
[2019-12-21] MEDS: NOREPINEPHRINE 8 MG/250ML KIT 250 ML IV SCH (17:29)
[2019-12-21] MEDS: ATORVASTATIN 20 MG TAB PO SCH (22:10)
[2019-12-21] MEDS: DOXYCYCLINE 100 MG TAB/CAP PEG SCH (22:10)
[2019-12-22] VITALS (105 sets, daily range): BP systolic 84–162; BP diastolic 50–111
[2019-12-22] MEDS: PROPOFOL 100 ML IV SCH ×3 (01:55→18:02)
[2019-12-22] MEDS: fentaNYL Drip 2500mCg/250mlNS 250 ML IV SCH ×2 (01:55→16:47)
[2019-12-22] MEDS: MIDAZOLAM DRIP 50 mg/50mL 50 ML IV SCH ×2 (02:57→17:20)
[2019-12-22 04:50] LABS: Basophils # (auto) 0 10 ^3/uL (0-0.2); Basophils % (auto) 0.6 % (0.0-2.0); Eosinophils # (auto) 0.1 10 ^3/uL (0-0.8); Eosinophils % (auto) 1.4 % (0.0-7.0); Hematocrit 33.5 % (41.0-53.0); Hemoglobin 11.5 g/dL (13.5-17.5); Lymphocytes # (auto) 0.8 10 ^3/uL (0.4-5.4); Lymphocytes % (auto) 11.6 % (10.0-50.0); Mean Corpuscular Hgb Conc. 34.4 g/dL (32.0-36.0); Mean Corpuscular Volume 98.7 fL (80.0-100.0); Monocytes # (auto) 0.4 10 ^3/uL (0-1.3); Monocytes % (auto) 5.2 % (0.0-12.0); Neutrophils # (auto) 5.9 10 ^3/uL (1.6-8.6); Neutrophils % (auto) 81.2 % (37.0-80.0); Nucleated Red Blood Cells % 0.1 %; Platelet Count (auto) 254 10^3/uL (140-450); Red Blood Cells 3.39 10^6/uL (4.5-5.90); Red Cell Distribution Width 13.6 % (11.8-14.3); White Blood Cell 7.2 10^3/uL (4.4-10.8)
[2019-12-22 05:08] LABS: Potassium 3.4 mmol/L (3.5-5.1)
[2019-12-22 05:12] LABS: BUN/Creatinine Ratio 24.4; Calcium 8.3 mg/dL (8.5-10.1)
[2019-12-22] MEDS: PIPERACILLIN-TAZOB 3.375GM 100 ML IV SCH ×3 (05:47→17:19)
[2019-12-22] MEDS: ACCU-CHEK COMFORT CURVE STRIP VI SCH ×3 (05:47→17:39)
[2019-12-22] MEDS: InsuLIN REG 1unit/0.01ml Soln (100units/ml) SC SCH ×3 (05:48→17:39)
[2019-12-22] MEDS: METOCLOPRAMIDE HCL 5MG/ml INJ 2ml VIAL IV SCH ×3 (06:16→22:13)
[2019-12-22] MEDS: DOCUSATE ORAL LIQUID 100 MG/10 ML UD GT SCH ×2 (09:27→22:12)
[2019-12-22] MEDS: FLUCONAZOLE 200MG/100ML 100 ML IV SCH (09:28)
[2019-12-22] MEDS: SODIUM CHLOR 0.9% PF (SALINE LOCK) 10ML VIAL/SYR IV SCH ×2 (09:28→22:13)
[2019-12-22] MEDS: PANTOPRAZOLE 40 MG/10 ML VIAL INJ IV SCH (09:28)
[2019-12-22] MEDS: ENOXAPARIN SOD 40 MG/0.4 ML SYRINGE SC SCH (09:29)
[2019-12-22] MEDS: DOXYCYCLINE 100 MG TAB/CAP PEG SCH ×2 (10:48→22:13)
[2019-12-22] MEDS: POTASSIUM CHL 20MEQ/100ML 100 ML IV SCH ×2 (12:00→14:34)
[2019-12-22] MEDS: DexMEDEtomidine 400 MCG in D5W 5% 96 ML IV SCH (13:16)
[2019-12-22] MEDS: NOREPINEPHRINE 8 MG/250ML KIT 250 ML IV SCH (17:29)
[2019-12-22] MEDS: ATORVASTATIN 20 MG TAB PO SCH (22:13)
[2019-12-23] VITALS (104 sets, daily range): BP systolic 93–152; BP diastolic 60–101
[2019-12-23] MEDS: ACCU-CHEK COMFORT CURVE STRIP VI SCH ×4 (00:07→17:50)
[2019-12-23] MEDS: PIPERACILLIN-TAZOB 3.375GM 100 ML IV SCH ×4 (00:08→17:51)
[2019-12-23 04:19] LABS: Basophils # (auto) 0 10 ^3/uL (0-0.2); Hematocrit 34.4 % (41.0-53.0); Lymphocytes # (auto) 0.8 10 ^3/uL (0.4-5.4); Monocytes # (auto) 0.4 10 ^3/uL (0-1.3); Neutrophils % (auto) 82.5 % (37.0-80.0)
[2019-12-23 04:21] LABS: Basophils % (auto) 0.6 % (0.0-2.0); Eosinophils # (auto) 0 10 ^3/uL (0-0.8); Eosinophils % (auto) 0.6 % (0.0-7.0); Lymphocytes % (auto) 10.9 % (10.0-50.0); Mean Corpuscular Hemoglobin 34.4 pg (28.0-32.0); Mean Corpuscular Hgb Conc. 34.9 g/dL (32.0-36.0); Mean Corpuscular Volume 98.3 fL (80.0-100.0); Monocytes % (auto) 5.4 % (0.0-12.0); Neutrophils # (auto) 6.1 10 ^3/uL (1.6-8.6); Platelet Count (auto) 293 10^3/uL (140-450); White Blood Cell 7.4 10^3/uL (4.4-10.8)
[2019-12-23 04:33] LABS: BUN/Creatinine Ratio 17.4; Calcium 8.3 mg/dL (8.5-10.1); Potassium 3.8 mmol/L (3.5-5.1)
[2019-12-23 04:36] LABS: Bilirubin, Total 0.6 mg/dL (0.2-1.0); Total Protein 6.5 g/dL (6.4-8.2)
[2019-12-23 04:37] LABS: INR 1.12 (0.9-1.15); Partial Thromboplastin Time 29.2 sec (23.0-31.2)
[2019-12-23] MEDS: METOCLOPRAMIDE HCL 5MG/ml INJ 2ml VIAL IV SCH ×3 (05:56→21:57)
[2019-12-23] MEDS: InsuLIN REG 1unit/0.01ml Soln (100units/ml) SC SCH ×4 (06:00→17:50)
[2019-12-23] MEDS: fentaNYL Drip 2500mCg/250mlNS 250 ML IV SCH (09:23)
[2019-12-23] MEDS: PROPOFOL 100 ML IV SCH (09:50)
[2019-12-23] MEDS: DOCUSATE ORAL LIQUID 100 MG/10 ML UD GT SCH ×2 (10:00→21:56)
[2019-12-23] MEDS: ENOXAPARIN SOD 40 MG/0.4 ML SYRINGE SC SCH (10:00)
[2019-12-23] MEDS: PANTOPRAZOLE 40 MG/10 ML VIAL INJ IV SCH (10:13)
[2019-12-23] MEDS: SODIUM CHLOR 0.9% PF (SALINE LOCK) 10ML VIAL/SYR IV SCH ×2 (10:13→21:57)
[2019-12-23] MEDS: DOXYCYCLINE 100 MG TAB/CAP PEG SCH ×2 (10:13→21:57)
[2019-12-23] MEDS: FLUCONAZOLE 200MG/100ML 100 ML IV SCH (10:14)
[2019-12-23] MEDS: MIDAZOLAM DRIP 50 mg/50mL 50 ML IV SCH (11:13)
[2019-12-23] MEDS: DexMEDEtomidine 400 MCG in D5W 5% 96 ML IV SCH (13:16)
[2019-12-23] MEDS: NOREPINEPHRINE 8 MG/250ML KIT 250 ML IV SCH (17:29)
[2019-12-23] MEDS: ATORVASTATIN 20 MG TAB PO SCH (21:57)
[2019-12-23] MEDS: ARTIFICIAL TEARS 15ml EACHEYE PRN (22:00)
[2019-12-24] VITALS (95 sets, daily range): BP systolic 92–152; BP diastolic 55–100
[2019-12-24] MEDS: ACCU-CHEK COMFORT CURVE STRIP VI SCH ×4 (00:11→18:22)
[2019-12-24] MEDS: MIDAZOLAM DRIP 50 mg/50mL 50 ML IV SCH ×2 (00:12→16:27)
[2019-12-24] MEDS: PIPERACILLIN-TAZOB 3.375GM 100 ML IV SCH ×5 (00:48→23:36)
[2019-12-24 04:10] LABS: Basophils # (auto) 0 10 ^3/uL (0-0.2); Eosinophils # (auto) 0.1 10 ^3/uL (0-0.8); Hemoglobin 11.7 g/dL (13.5-17.5); Mean Corpuscular Volume 97.9 fL (80.0-100.0); Monocytes # (auto) 0.4 10 ^3/uL (0-1.3); Nucleated Red Blood Cells % 0.1 %
[2019-12-24 04:13] LABS: Basophils % (auto) 0.8 % (0.0-2.0); Eosinophils % (auto) 2.4 % (0.0-7.0); Hematocrit 33.3 % (41.0-53.0); Lymphocytes % (auto) 18.2 % (10.0-50.0); Mean Corpuscular Hemoglobin 34.5 pg (28.0-32.0); Mean Corpuscular Hgb Conc. 35.2 g/dL (32.0-36.0); Monocytes % (auto) 7.1 % (0.0-12.0); Neutrophils % (auto) 71.5 % (37.0-80.0); Platelet Count (auto) 305 10^3/uL (140-450); Red Blood Cells 3.41 10^6/uL (4.5-5.90); Red Cell Distribution Width 13.5 % (11.8-14.3); White Blood Cell 5.6 10^3/uL (4.4-10.8)
[2019-12-24 04:25] LABS: INR 1.1 (0.9-1.15); Partial Thromboplastin Time 28.5 sec (23.0-31.2)
[2019-12-24 04:27] LABS: Potassium 3.4 mmol/L (3.5-5.1)
[2019-12-24 04:36] LABS: BUN/Creatinine Ratio 15.7; Bilirubin, Total 0.7 mg/dL (0.2-1.0); Calcium 8.1 mg/dL (8.5-10.1); Total Protein 6.4 g/dL (6.4-8.2)
[2019-12-24] MEDS: InsuLIN REG 1unit/0.01ml Soln (100units/ml) SC SCH ×4 (06:00→18:00)
[2019-12-24] MEDS: PROPOFOL 100 ML IV SCH ×2 (06:03→16:16)
[2019-12-24] MEDS: METOCLOPRAMIDE HCL 5MG/ml INJ 2ml VIAL IV SCH ×3 (06:10→22:00)
[2019-12-24] MEDS ORDERED: POTASSIUM CHL 20MEQ/100ML 100 ML IV ONE (09:00)
[2019-12-24] MEDS: ENOXAPARIN SOD 40 MG/0.4 ML SYRINGE SC SCH (10:00)
[2019-12-24] MEDS: FLUCONAZOLE 200MG/100ML 100 ML IV SCH (10:00)
[2019-12-24] MEDS: DOXYCYCLINE 100 MG TAB/CAP PEG SCH ×2 (10:37→22:00)
[2019-12-24] MEDS: DOCUSATE ORAL LIQUID 100 MG/10 ML UD GT SCH ×2 (10:37→22:00)
[2019-12-24] MEDS: SODIUM CHLOR 0.9% PF (SALINE LOCK) 10ML VIAL/SYR IV SCH ×2 (10:37→22:00)
[2019-12-24] MEDS: PANTOPRAZOLE 40 MG/10 ML VIAL INJ IV SCH (10:37)
[2019-12-24] MEDS ORDERED: fentaNYL CITRATE 100 MCG/2 ML VL ONE (13:05)
[2019-12-24] MEDS ORDERED: MIDAZOLAM HCL 1MG/1ML-2 ML VIAL ONE (13:05)
[2019-12-24] MEDS ORDERED: ROCURONIUM 10MG/ML 10ML VIAL IV ONE (13:06)
[2019-12-24] MEDS ORDERED: PROPOFOL 10 MG/ML 20 ML IV ONE (13:06)
[2019-12-24] MEDS ORDERED: PHENYLEPHRINE HCL 10 MG/ML VL ONE (13:06)
[2019-12-24] MEDS ORDERED: ONDANSETRON HCL 4 MG/2 ML VIAL ONE (13:06)
[2019-12-24] MEDS ORDERED: ePHEDrine SULFATE 50 MG/ML AMP ONE (13:06)
[2019-12-24] MEDS ORDERED: GLYCOPYRROLATE 0.2 MG/ML 1ML VIAL ONE (13:06)
[2019-12-24] MEDS: DexMEDEtomidine 400 MCG in D5W 5% 96 ML IV SCH (13:16)
[2019-12-24] MEDS ORDERED: HYDROmorphone HCL 2 MG/ML VL ONE (14:15)
[2019-12-24] MEDS: Osmolite 1.2 Cal One Liter GT SCH (15:14)
[2019-12-24] MEDS: ARTIFICIAL TEARS 15ml EACHEYE PRN (15:14)
[2019-12-24] MEDS: fentaNYL Drip 2500mCg/250mlNS 250 ML IV SCH (16:17)
[2019-12-24] MEDS: NOREPINEPHRINE 8 MG/250ML KIT 250 ML IV SCH (17:29)
[2019-12-24] MEDS: ACETAMINOPHEN 325 MG TAB PO PRN (21:00)
[2019-12-24] MEDS: ATORVASTATIN 20 MG TAB PO SCH (22:00)
[2019-12-25] VITALS (102 sets, daily range): BP systolic 73–185; BP diastolic 42–119
[2019-12-25] MEDS: ACCU-CHEK COMFORT CURVE STRIP VI SCH ×4 (00:17→18:00)
[2019-12-25] MEDS: PROPOFOL 100 ML IV SCH (00:19)
[2019-12-25] MEDS: MIDAZOLAM DRIP 50 mg/50mL 50 ML IV SCH (01:15)
[2019-12-25] MEDS: InsuLIN REG 1unit/0.01ml Soln (100units/ml) SC SCH ×4 (06:00→18:00)
[2019-12-25] MEDS: METOCLOPRAMIDE HCL 5MG/ml INJ 2ml VIAL IV SCH (06:01)
[2019-12-25] MEDS: PIPERACILLIN-TAZOB 3.375GM 100 ML IV SCH (06:03)
[2019-12-25] MEDS: fentaNYL Drip 2500mCg/250mlNS 250 ML IV SCH ×2 (06:55→22:31)
[2019-12-25] MEDS: ACETAMINOPHEN 325 MG TAB PO PRN ×3 (07:47→21:59)
[2019-12-25] MEDS: PANTOPRAZOLE 40 MG/10 ML VIAL INJ IV SCH (10:07)
[2019-12-25] MEDS: DOCUSATE ORAL LIQUID 100 MG/10 ML UD GT SCH (10:07)
[2019-12-25] MEDS: SODIUM CHLOR 0.9% PF (SALINE LOCK) 10ML VIAL/SYR IV SCH ×2 (10:08→22:00)
[2019-12-25] MEDS: DOXYCYCLINE 100 MG TAB/CAP PEG SCH (10:08)
[2019-12-25] MEDS: FLUCONAZOLE 200MG/100ML 100 ML IV SCH (10:08)
[2019-12-25] MEDS: ENOXAPARIN SOD 40 MG/0.4 ML SYRINGE SC SCH (10:08)
[2019-12-25] MEDS ORDERED: HCTZ 25 MG TAB PEG ONE (12:00)
[2019-12-25] MEDS ORDERED: METOPROLOL TARTRATE 25 MG TAB PO ONE (12:00)
[2019-12-25] MEDS ORDERED: amLODIPine BESYLATE 5 MG TAB PEG ONE (12:00)
[2019-12-25] MEDS ORDERED: POTASSIUM EFFERVESENT TAB 25 MEQ GT ONE (12:15)
[2019-12-25] MEDS ORDERED: MEROPENEM 1GM IVPB 100 ML IV ONE (12:15)
[2019-12-25] MEDS: MEROPENEM 1GM IVPB 100 ML IV SCH ×2 (14:47→22:02)
[2019-12-25] MEDS: DexMEDEtomidine 400 MCG in D5W 5% 96 ML IV SCH ×2 (15:11→20:59)
[2019-12-25] MEDS: NOREPINEPHRINE 8 MG/250ML KIT 250 ML IV SCH (17:29)
[2019-12-25] MEDS: ATORVASTATIN 20 MG TAB PO SCH ×2 (21:59→22:01)
[2019-12-25] MEDS: DOXYCYCLINE 100 MG TAB/CAP PO SCH (22:00)
[2019-12-25] MEDS: METOPROLOL TARTRATE 25 MG TAB PO SCH (22:00)
[2019-12-26] VITALS (94 sets, daily range): BP systolic 77–156; BP diastolic 43–121
[2019-12-26 04:50] LABS: Basophils # (auto) 0 10 ^3/uL (0-0.2); Basophils % (auto) 0.3 % (0.0-2.0); Eosinophils # (auto) 0 10 ^3/uL (0-0.8); Eosinophils % (auto) 0.4 % (0.0-7.0); Hemoglobin 11.2 g/dL (13.5-17.5); Lymphocytes % (auto) 14.8 % (10.0-50.0); Mean Corpuscular Hemoglobin 33.3 pg (28.0-32.0); Mean Corpuscular Volume 98.1 fL (80.0-100.0); Monocytes # (auto) 0.4 10 ^3/uL (0-1.3); Monocytes % (auto) 6.4 % (0.0-12.0); Neutrophils # (auto) 5.4 10 ^3/uL (1.6-8.6); Neutrophils % (auto) 78.1 % (37.0-80.0); Platelet Count (auto) 328 10^3/uL (140-450); Red Blood Cells 3.36 10^6/uL (4.5-5.90); Red Cell Distribution Width 14.1 % (11.8-14.3); White Blood Cell 6.9 10^3/uL (4.4-10.8)
[2019-12-26 05:09] LABS: Potassium 3.2 mmol/L (3.5-5.1)
[2019-12-26 05:15] LABS: BUN/Creatinine Ratio 21.6; Calcium 8.6 mg/dL (8.5-10.1)
[2019-12-26] MEDS: MEROPENEM 1GM IVPB 100 ML IV SCH ×3 (05:30→22:06)
[2019-12-26] MEDS: InsuLIN REG 1unit/0.01ml Soln (100units/ml) SC SCH ×3 (06:00→12:00)
[2019-12-26] MEDS: ACCU-CHEK COMFORT CURVE STRIP VI SCH ×3 (06:00→12:00)
[2019-12-26] MEDS: PANTOPRAZOLE 40 MG/10 ML VIAL INJ IV SCH (10:02)
[2019-12-26] MEDS: FLUCONAZOLE 200MG/100ML 100 ML IV SCH (10:02)
[2019-12-26] MEDS: ENOXAPARIN SOD 40 MG/0.4 ML SYRINGE SC SCH (10:02)
[2019-12-26] MEDS: SODIUM CHLOR 0.9% PF (SALINE LOCK) 10ML VIAL/SYR IV SCH ×2 (10:03→22:17)
[2019-12-26] MEDS: HCTZ 25 MG TAB PEG SCH (10:03)
[2019-12-26] MEDS: DOXYCYCLINE 100 MG TAB/CAP PO SCH ×2 (10:04→22:05)
[2019-12-26] MEDS: amLODIPine BESYLATE 5 MG TAB PEG SCH (10:04)
[2019-12-26] MEDS: METOPROLOL TARTRATE 25 MG TAB PO SCH ×2 (10:04→22:00)
[2019-12-26] MEDS ORDERED: CIPROFLOXACIN 0.3%OPTH(EYE) SOL 5ML RIGHTEYE SCH (14:00)
[2019-12-26] MEDS: CIPROFLOXACIN 0.3%OPTH(EYE) SOL 5ML LEFTEYE SCH ×2 (14:25→22:00)
[2019-12-26] MEDS ORDERED: METOCLOPRAMIDE HCL 5MG/ml INJ 2ml VIAL IV ONE (15:00)
[2019-12-26] MEDS ORDERED: POTASSIUM EFFERVESENT TAB 25 MEQ GT ONE (15:00)
[2019-12-26] MEDS: METOCLOPRAMIDE HCL 5MG/ml INJ 2ml VIAL IV SCH (22:05)
[2019-12-27] VITALS (84 sets, daily range): BP systolic 72–174; BP diastolic 40–120
[2019-12-27] MEDS: CIPROFLOXACIN 0.3%OPTH(EYE) SOL 5ML LEFTEYE SCH ×3 (02:00→10:00)
[2019-12-27] MEDS: fentaNYL Drip 2500mCg/250mlNS 250 ML IV SCH ×2 (04:00→06:25)
[2019-12-27] MEDS: DexMEDEtomidine 400 MCG in D5W 5% 96 ML IV SCH ×2 (04:48→15:00)
[2019-12-27 05:27] LABS: Basophils # (auto) 0 10 ^3/uL (0-0.2); Basophils % (auto) 0.4 % (0.0-2.0); Eosinophils # (auto) 0 10 ^3/uL (0-0.8); Eosinophils % (auto) 0.4 % (0.0-7.0); Hematocrit 33.8 % (41.0-53.0); Hemoglobin 11.6 g/dL (13.5-17.5); Lymphocytes # (auto) 1.3 10 ^3/uL (0.4-5.4); Mean Corpuscular Hemoglobin 33.3 pg (28.0-32.0); Mean Corpuscular Hgb Conc. 34.4 g/dL (32.0-36.0); Mean Corpuscular Volume 97.1 fL (80.0-100.0); Monocytes # (auto) 0.6 10 ^3/uL (0-1.3); Monocytes % (auto) 6.5 % (0.0-12.0); Neutrophils # (auto) 7.4 10 ^3/uL (1.6-8.6); Neutrophils % (auto) 78.7 % (37.0-80.0); Platelet Count (auto) 345 10^3/uL (140-450); Red Blood Cells 3.48 10^6/uL (4.5-5.90); Red Cell Distribution Width 13.7 % (11.8-14.3); White Blood Cell 9.3 10^3/uL (4.4-10.8)
[2019-12-27 05:47] LABS: BUN/Creatinine Ratio 20.4; Calcium 8.6 mg/dL (8.5-10.1)
[2019-12-27] MEDS: ACCU-CHEK COMFORT CURVE STRIP VI SCH ×4 (05:48→17:40)
[2019-12-27] MEDS: MEROPENEM 1GM IVPB 100 ML IV SCH ×3 (05:48→21:37)
[2019-12-27] MEDS: METOCLOPRAMIDE HCL 5MG/ml INJ 2ml VIAL IV SCH ×3 (05:48→21:37)
[2019-12-27] MEDS: InsuLIN REG 1unit/0.01ml Soln (100units/ml) SC SCH ×4 (05:49→17:40)
[2019-12-27 06:04] LABS: Potassium 2.6 mmol/L (3.5-5.1)
[2019-12-27] MEDS: POTASSIUM CHL 20MEQ/100ML 100 ML IV SCH ×2 (06:40→08:40)
[2019-12-27] MEDS ORDERED: POTASSIUM CHL 20MEQ/100ML 100 ML IV ONE (06:45)
[2019-12-27] MEDS ORDERED: POTASSIUM EFFERVESENT TAB 25 MEQ GT ONE (09:00)
[2019-12-27] MEDS: NOREPINEPHRINE 8 MG/250ML KIT 250 ML IV SCH ×2 (09:58→17:29)
[2019-12-27] MEDS: MIDAZOLAM DRIP 50 mg/50mL 50 ML IV SCH ×2 (09:59→20:42)
[2019-12-27] MEDS: amLODIPine BESYLATE 5 MG TAB PEG SCH (10:00)
[2019-12-27] MEDS: SODIUM CHLOR 0.9% PF (SALINE LOCK) 10ML VIAL/SYR IV SCH ×2 (10:02→21:37)
[2019-12-27] MEDS: PANTOPRAZOLE 40 MG/10 ML VIAL INJ IV SCH (10:02)
[2019-12-27] MEDS: ENOXAPARIN SOD 40 MG/0.4 ML SYRINGE SC SCH (10:02)
[2019-12-27] MEDS: FLUCONAZOLE 200MG/100ML 100 ML IV SCH (10:02)
[2019-12-27] MEDS: PROPOFOL 100 ML IV SCH ×2 (10:04→17:29)
[2019-12-27] MEDS ORDERED: IOHEXOL 300 MG/ML 100ML BOTTLE IJ ONE (11:11)
[2019-12-27] MEDS: METOPROLOL TARTRATE 25 MG TAB PO SCH ×2 (13:03→21:37)
[2019-12-27] MEDS: HCTZ 25 MG TAB PEG SCH (13:03)
[2019-12-27] MEDS: DOXYCYCLINE 100 MG TAB/CAP PO SCH ×2 (13:04→21:37)
[2019-12-27] MEDS: D5W/SOD CHLO 0.9% 1,000 ML IV SCH (13:08)
[2019-12-27] MEDS ORDERED: METOPROLOL TARTRATE 25 MG TAB PO ONE ×2 (15:00)
[2019-12-27] MEDS: ONDANSETRON HCL 4 MG/2 ML VIAL IV PRN ×2 (15:37→21:35)
[2019-12-27] MEDS: MILK OF MAGNESIA 30ML SUSP PO PRN (21:35)
[2019-12-27] MEDS: ATORVASTATIN 20 MG TAB PO SCH (21:37)
[2019-12-28] VITALS (96 sets, daily range): BP systolic 55–172; BP diastolic 25–122
[2019-12-28] MEDS: MIDAZOLAM DRIP 50 mg/50mL 50 ML IV SCH (02:10)
[2019-12-28 05:24] LABS: Basophils # (auto) 0 10 ^3/uL (0-0.2); Eosinophils # (auto) 0.1 10 ^3/uL (0-0.8); Lymphocytes # (auto) 0.9 10 ^3/uL (0.4-5.4); Monocytes # (auto) 0.8 10 ^3/uL (0-1.3); Neutrophils # (auto) 7.6 10 ^3/uL (1.6-8.6); White Blood Cell 9.4 10^3/uL (4.4-10.8)
[2019-12-28 05:26] LABS: Basophils % (auto) 0.3 % (0.0-2.0); Eosinophils % (auto) 0.9 % (0.0-7.0); Hematocrit 33.9 % (41.0-53.0); Hemoglobin 11.7 g/dL (13.5-17.5); Lymphocytes % (auto) 9.7 % (10.0-50.0); Mean Corpuscular Hemoglobin 33.5 pg (28.0-32.0); Mean Corpuscular Hgb Conc. 34.7 g/dL (32.0-36.0); Mean Corpuscular Volume 96.6 fL (80.0-100.0); Monocytes % (auto) 8.1 % (0.0-12.0); Platelet Count (auto) 471 10^3/uL (140-450); Red Blood Cells 3.51 10^6/uL (4.5-5.90); Red Cell Distribution Width 13.5 % (11.8-14.3)
[2019-12-28 05:40] LABS: Potassium 3.2 mmol/L (3.5-5.1)
[2019-12-28] MEDS: ACCU-CHEK COMFORT CURVE STRIP VI SCH ×4 (05:42→17:28)
[2019-12-28] MEDS: MEROPENEM 1GM IVPB 100 ML IV SCH ×3 (05:42→22:00)
[2019-12-28] MEDS: METOCLOPRAMIDE HCL 5MG/ml INJ 2ml VIAL IV SCH ×3 (05:42→22:00)
[2019-12-28] MEDS: InsuLIN REG 1unit/0.01ml Soln (100units/ml) SC SCH ×4 (05:42→17:28)
[2019-12-28 05:48] LABS: Albumin 2.2 g/dL (3.4-5.0); BUN/Creatinine Ratio 12.7; Bilirubin, Total 0.6 mg/dL (0.2-1.0); Calcium 8.6 mg/dL (8.5-10.1); Total Protein 6.5 g/dL (6.4-8.2)
[2019-12-28] MEDS ORDERED: POTASSIUM EFFERVESENT TAB 25 MEQ PO ONE (07:45)
[2019-12-28] MEDS ORDERED: POTASSIUM EFFERVESENT TAB 25 MEQ ONE (08:11)
[2019-12-28] MEDS: METOPROLOL TARTRATE 25 MG TAB PO SCH ×3 (10:00→22:02)
[2019-12-28] MEDS: amLODIPine BESYLATE 5 MG TAB PEG SCH ×2 (10:00→16:23)
[2019-12-28] MEDS: HCTZ 25 MG TAB PEG SCH ×2 (10:00→16:23)
[2019-12-28] MEDS: SODIUM CHLOR 0.9% PF (SALINE LOCK) 10ML VIAL/SYR IV SCH ×2 (10:13→22:00)
[2019-12-28] MEDS: FLUCONAZOLE 200MG/100ML 100 ML IV SCH (10:13)
[2019-12-28] MEDS: PANTOPRAZOLE 40 MG/10 ML VIAL INJ IV SCH (10:13)
[2019-12-28] MEDS: ENOXAPARIN SOD 40 MG/0.4 ML SYRINGE SC SCH (10:15)
[2019-12-28] MEDS: DOXYCYCLINE 100 MG TAB/CAP PO SCH ×2 (10:15→22:02)
[2019-12-28] MEDS: DexMEDEtomidine 400 MCG in D5W 5% 96 ML IV SCH ×3 (10:18)
[2019-12-28] MEDS: D5W/SOD CHLO 0.9% 1,000 ML IV SCH (11:54)
[2019-12-28] MEDS: CIPROFLOXACIN 0.3%OPTH(EYE) SOL 5ML LEFTEYE SCH ×3 (15:13→22:01)
[2019-12-28] MEDS: ATORVASTATIN 20 MG TAB PO SCH (22:00)
[2019-12-28] MEDS: fentaNYL Drip 2500mCg/250mlNS 250 ML IV SCH (22:05)
[2019-12-29] VITALS (88 sets, daily range): BP systolic 62–181; BP diastolic 30–124
[2019-12-29] MEDS: CIPROFLOXACIN 0.3%OPTH(EYE) SOL 5ML LEFTEYE SCH ×6 (02:00→21:43)
[2019-12-29] MEDS: D5W/SOD CHLO 0.9% 1,000 ML IV SCH (02:00)
[2019-12-29 04:21] LABS: Basophils # (auto) 0 10 ^3/uL (0-0.2); Basophils % (auto) 0.2 % (0.0-2.0); Eosinophils # (auto) 0 10 ^3/uL (0-0.8); Lymphocytes # (auto) 0.9 10 ^3/uL (0.4-5.4); Lymphocytes % (auto) 8.3 % (10.0-50.0); Mean Corpuscular Volume 95.7 fL (80.0-100.0); Monocytes # (auto) 0.5 10 ^3/uL (0-1.3); Neutrophils % (auto) 86.6 % (37.0-80.0)
[2019-12-29 04:25] LABS: Eosinophils % (auto) 0.3 % (0.0-7.0); Hematocrit 35.6 % (41.0-53.0); Hemoglobin 12.9 g/dL (13.5-17.5); Mean Corpuscular Hemoglobin 34.6 pg (28.0-32.0); Mean Corpuscular Hgb Conc. 36.1 g/dL (32.0-36.0); Monocytes % (auto) 4.6 % (0.0-12.0); Neutrophils # (auto) 9.8 10 ^3/uL (1.6-8.6); Platelet Count (auto) 498 10^3/uL (140-450); Red Blood Cells 3.72 10^6/uL (4.5-5.90); Red Cell Distribution Width 13.8 % (11.8-14.3); White Blood Cell 11.3 10^3/uL (4.4-10.8)
[2019-12-29 04:39] LABS: BUN/Creatinine Ratio 14.8; Calcium 8.5 mg/dL (8.5-10.1)
[2019-12-29] MEDS: MEROPENEM 1GM IVPB 100 ML IV SCH (06:06)
[2019-12-29] MEDS: METOCLOPRAMIDE HCL 5MG/ml INJ 2ml VIAL IV SCH ×3 (06:07→21:43)
[2019-12-29] MEDS: fentaNYL Drip 2500mCg/250mlNS 250 ML IV SCH (08:05)
[2019-12-29] MEDS ORDERED: POTASSIUM CHL 20 Meq TABLET PO ONE (09:00)
[2019-12-29] MEDS ORDERED: POTASSIUM EFFERVESENT TAB 25 MEQ GT ONE (09:15)
[2019-12-29] MEDS: DOXYCYCLINE 100 MG TAB/CAP PO SCH (09:44)
[2019-12-29] MEDS: ENOXAPARIN SOD 40 MG/0.4 ML SYRINGE SC SCH (09:44)
[2019-12-29] MEDS: FLUCONAZOLE 200MG/100ML 100 ML IV SCH (09:44)
[2019-12-29] MEDS: PANTOPRAZOLE 40 MG/10 ML VIAL INJ IV SCH ×2 (09:44→21:43)
[2019-12-29] MEDS: amLODIPine BESYLATE 5 MG TAB PEG SCH (09:45)
[2019-12-29] MEDS: SODIUM CHLOR 0.9% PF (SALINE LOCK) 10ML VIAL/SYR IV SCH ×2 (09:45→21:42)
[2019-12-29] MEDS: METOPROLOL TARTRATE 25 MG TAB PO SCH ×2 (11:11→21:41)
[2019-12-29] MEDS: HCTZ 25 MG TAB PEG SCH (11:11)
[2019-12-29] MEDS: DexMEDEtomidine 400 MCG in D5W 5% 96 ML IV SCH (11:56)
[2019-12-29] MEDS ORDERED: LORazepam 2MG/ML-1ML VIAL IV ONE (12:00)
[2019-12-29] MEDS: ONDANSETRON HCL 4 MG/2 ML VIAL IV PRN (12:01)
[2019-12-29] MEDS: POTASSIUM CHL 20MEQ/100ML 100 ML IV SCH ×3 (12:04→14:31)
[2019-12-29] MEDS: D5W/ SOD CHL 0.9%/KCL 20MEQ 1,000 ML IV SCH (12:15)
[2019-12-29] MEDS: PIPERACILLIN-TAZO 4.5GM 100 ML IV SCH ×2 (14:00→22:20)
[2019-12-29] MEDS ORDERED: TPN PER PHARMACY 0 ML IV SCH (14:15)
[2019-12-29 14:33] LABS: Albumin 2.5 g/dL (3.4-5.0); Magnesium 2.4 mg/dL (1.6-2.6); Phosphorus 2.7 mg/dL (2.5-4.90)
[2019-12-29] MEDS: SUCRALFATE 1 GM/10 ML ORAL SUSP GT SCH ×2 (17:00→21:40)
[2019-12-29] MEDS: ACCU-CHEK COMFORT CURVE STRIP VI SCH ×2 (18:00→23:40)
[2019-12-29] MEDS: InsuLIN REG 1unit/0.01ml Soln (100units/ml) SC SCH ×2 (18:00→23:40)
[2019-12-29] MEDS ORDERED: DEXTROSE (50%) 50ML SYRG IV SCH (18:00)
[2019-12-29] MEDS ORDERED: AMINO ACID INFUSION IN D5W 2,000 ML IV NR (20:00)
[2019-12-29] MEDS: MIDAZOLAM DRIP 50 mg/50mL 50 ML IV SCH (20:42)
[2019-12-29] MEDS: MORPHINE SULF INJ 2 MG/ML SYRINGE 1ML IV SCH (21:42)
[2019-12-29] MEDS: ATORVASTATIN 20 MG TAB PO SCH (21:42)
[2019-12-30] VITALS (87 sets, daily range): BP systolic 80–193; BP diastolic 49–119
[2019-12-30] MEDS: fentaNYL Drip 2500mCg/250mlNS 250 ML IV SCH ×2 (00:05→12:01)
[2019-12-30] MEDS: CIPROFLOXACIN 0.3%OPTH(EYE) SOL 5ML LEFTEYE SCH ×6 (02:23→22:24)
[2019-12-30 05:12] LABS: Basophils # (auto) 0.1 10 ^3/uL (0-0.2); Eosinophils # (auto) 0.5 10 ^3/uL (0-0.8); Lymphocytes # (auto) 1.6 10 ^3/uL (0.4-5.4); Lymphocytes % (auto) 13.5 % (10.0-50.0); Red Cell Distribution Width 14.1 % (11.8-14.3)
[2019-12-30 05:14] LABS: Basophils % (auto) 0.7 % (0.0-2.0); Eosinophils % (auto) 4.3 % (0.0-7.0); Hematocrit 34.7 % (41.0-53.0); Hemoglobin 12.1 g/dL (13.5-17.5); Mean Corpuscular Hemoglobin 33.8 pg (28.0-32.0); Mean Corpuscular Hgb Conc. 34.9 g/dL (32.0-36.0); Mean Corpuscular Volume 96.9 fL (80.0-100.0); Monocytes % (auto) 8.2 % (0.0-12.0); Neutrophils # (auto) 8.6 10 ^3/uL (1.6-8.6); Neutrophils % (auto) 73.3 % (37.0-80.0); Platelet Count (auto) 531 10^3/uL (140-450); Red Blood Cells 3.59 10^6/uL (4.5-5.90); White Blood Cell 11.7 10^3/uL (4.4-10.8)
[2019-12-30 05:25] LABS: Albumin 2.3 g/dL (3.4-5.0); Magnesium 2.2 mg/dL (1.6-2.6); Potassium 3.5 mmol/L (3.5-5.1)
[2019-12-30 05:33] LABS: BUN/Creatinine Ratio 18.8; Bilirubin, Total 0.8 mg/dL (0.2-1.0); Phosphorus 3.6 mg/dL (2.5-4.90); Pre Albumin 15.8 mg/dL (20.0-40.0); Total Protein 6.7 g/dL (6.4-8.2)
[2019-12-30] MEDS: InsuLIN REG 1unit/0.01ml Soln (100units/ml) SC SCH ×3 (06:00→17:47)
[2019-12-30] MEDS: METOCLOPRAMIDE HCL 5MG/ml INJ 2ml VIAL IV SCH ×3 (06:03→22:24)
[2019-12-30] MEDS: SUCRALFATE 1 GM/10 ML ORAL SUSP GT SCH ×4 (06:04→22:23)
[2019-12-30] MEDS: ACCU-CHEK COMFORT CURVE STRIP VI SCH ×3 (06:04→17:47)
[2019-12-30] MEDS: MORPHINE SULF INJ 2 MG/ML SYRINGE 1ML IV SCH ×3 (06:04→22:23)
[2019-12-30] MEDS: D5W/ SOD CHL 0.9%/KCL 20MEQ 1,000 ML IV SCH (08:15)
[2019-12-30] MEDS: PIPERACILLIN-TAZO 4.5GM 100 ML IV SCH ×3 (08:35→22:24)
[2019-12-30] MEDS: PANTOPRAZOLE 40 MG/10 ML VIAL INJ IV SCH ×2 (09:34→22:23)
[2019-12-30] MEDS: ENOXAPARIN SOD 40 MG/0.4 ML SYRINGE SC SCH (09:34)
[2019-12-30] MEDS: SODIUM CHLOR 0.9% PF (SALINE LOCK) 10ML VIAL/SYR IV SCH ×2 (09:35→22:24)
[2019-12-30] MEDS: METOPROLOL TARTRATE 25 MG TAB PO SCH ×2 (09:35→22:24)
[2019-12-30] MEDS: DexMEDEtomidine 400 MCG in D5W 5% 96 ML IV SCH (10:45)
[2019-12-30] MEDS ORDERED: TPN PER PHARMACY IV NR ×10 (20:00)
[2019-12-30] MEDS: LORazepam 2MG/ML-1ML VIAL IV PRN (22:23)
[2019-12-30] MEDS: ATORVASTATIN 20 MG TAB PO SCH (22:24)
[2019-12-31] VITALS (83 sets, daily range): BP systolic 82–193; BP diastolic 58–129
[2019-12-31] MEDS: ACCU-CHEK COMFORT CURVE STRIP VI SCH ×4 (00:23→17:46)
[2019-12-31] MEDS: InsuLIN REG 1unit/0.01ml Soln (100units/ml) SC SCH ×4 (00:23→17:47)
[2019-12-31] MEDS: fentaNYL Drip 2500mCg/250mlNS 250 ML IV SCH ×3 (00:34→23:56)
[2019-12-31] MEDS: CIPROFLOXACIN 0.3%OPTH(EYE) SOL 5ML LEFTEYE SCH ×6 (02:00→21:33)
[2019-12-31 04:37] LABS: Basophils # (auto) 0 10 ^3/uL (0-0.2); Basophils % (auto) 0.6 % (0.0-2.0); Eosinophils # (auto) 0.4 10 ^3/uL (0-0.8); Eosinophils % (auto) 5.2 % (0.0-7.0); Hematocrit 35.5 % (41.0-53.0); Hemoglobin 12.4 g/dL (13.5-17.5); Lymphocytes % (auto) 12.3 % (10.0-50.0); Mean Corpuscular Hemoglobin 33.6 pg (28.0-32.0); Mean Corpuscular Volume 95.8 fL (80.0-100.0); Monocytes # (auto) 0.6 10 ^3/uL (0-1.3); Monocytes % (auto) 7.9 % (0.0-12.0); Neutrophils # (auto) 5.9 10 ^3/uL (1.6-8.6); Platelet Count (auto) 420 10^3/uL (140-450); Red Cell Distribution Width 13.6 % (11.8-14.3); White Blood Cell 7.9 10^3/uL (4.4-10.8)
[2019-12-31 04:44] LABS: Potassium 3.3 mmol/L (3.5-5.1)
[2019-12-31 04:53] LABS: Albumin 2.3 g/dL (3.4-5.0); BUN/Creatinine Ratio 23.5; Bilirubin, Total 0.6 mg/dL (0.2-1.0); Calcium 8.4 mg/dL (8.5-10.1); Magnesium 2.2 mg/dL (1.6-2.6); Phosphorus 2.8 mg/dL (2.5-4.90); Total Protein 6.9 g/dL (6.4-8.2)
[2019-12-31] MEDS: METOCLOPRAMIDE HCL 5MG/ml INJ 2ml VIAL IV SCH ×3 (05:24→21:32)
[2019-12-31] MEDS: MORPHINE SULF INJ 2 MG/ML SYRINGE 1ML IV SCH ×3 (05:24→21:38)
[2019-12-31] MEDS: PIPERACILLIN-TAZO 4.5GM 100 ML IV SCH ×3 (05:24→21:33)
[2019-12-31] MEDS: SUCRALFATE 1 GM/10 ML ORAL SUSP GT SCH ×4 (05:25→21:34)
[2019-12-31] MEDS ORDERED: POTASSIUM CHLORIDE 40 MEQ, LIDOCAINE 1% (LOCAL ANESTH.) 4 ML in SODIUM CHL 0.9% 100 ML IV ONE (10:00)
[2019-12-31] MEDS ORDERED: POTASSIUM CHL 20MEQ/100ML 100 ML IV ONE (10:03)
[2019-12-31] MEDS: ENOXAPARIN SOD 40 MG/0.4 ML SYRINGE SC SCH (10:11)
[2019-12-31] MEDS: METOPROLOL TARTRATE 25 MG TAB PO SCH ×2 (10:12→21:34)
[2019-12-31] MEDS: SODIUM CHLOR 0.9% PF (SALINE LOCK) 10ML VIAL/SYR IV SCH ×2 (10:12→21:32)
[2019-12-31] MEDS: PANTOPRAZOLE 40 MG/10 ML VIAL INJ IV SCH ×2 (10:12→21:30)
[2019-12-31] MEDS: ONDANSETRON HCL 4 MG/2 ML VIAL IV PRN (13:07)
[2019-12-31] MEDS: DexMEDEtomidine 400 MCG in D5W 5% 96 ML IV SCH (13:16)
[2019-12-31] MEDS: LORazepam 2MG/ML-1ML VIAL IV PRN ×2 (16:20→17:46)
[2019-12-31] MEDS ORDERED: TPN PER PHARMACY IV NR ×10 (20:00)
[2019-12-31] MEDS: ATORVASTATIN 20 MG TAB PO SCH (21:33)
[2020-01-01] VITALS (33 sets, daily range): BP systolic 90–199; BP diastolic 49–131
[2020-01-01] MEDS: ACCU-CHEK COMFORT CURVE STRIP VI SCH ×4 (00:06→18:00)
[2020-01-01] MEDS: InsuLIN REG 1unit/0.01ml Soln (100units/ml) SC SCH ×4 (00:07→18:00)
[2020-01-01] MEDS: CIPROFLOXACIN 0.3%OPTH(EYE) SOL 5ML LEFTEYE SCH ×6 (01:50→22:00)
[2020-01-01 04:51] LABS: Basophils # (auto) 0 10 ^3/uL (0-0.2); Basophils % (auto) 0.7 % (0.0-2.0); Eosinophils # (auto) 0.3 10 ^3/uL (0-0.8); Eosinophils % (auto) 5.5 % (0.0-7.0); Hematocrit 34.5 % (41.0-53.0); Hemoglobin 11.7 g/dL (13.5-17.5); Lymphocytes # (auto) 0.9 10 ^3/uL (0.4-5.4); Lymphocytes % (auto) 17.2 % (10.0-50.0); Mean Corpuscular Hemoglobin 33.2 pg (28.0-32.0); Mean Corpuscular Volume 97.8 fL (80.0-100.0); Monocytes # (auto) 0.6 10 ^3/uL (0-1.3); Monocytes % (auto) 10.7 % (0.0-12.0); Neutrophils # (auto) 3.6 10 ^3/uL (1.6-8.6); Neutrophils % (auto) 65.9 % (37.0-80.0); Nucleated Red Blood Cells % 0.1 %; Platelet Count (auto) 401 10^3/uL (140-450); Red Blood Cells 3.53 10^6/uL (4.5-5.90); White Blood Cell 5.5 10^3/uL (4.4-10.8)
[2020-01-01 04:59] LABS: Potassium 3.4 mmol/L (3.5-5.1)
[2020-01-01 05:06] LABS: Albumin 2.2 g/dL (3.4-5.0); BUN/Creatinine Ratio 19.6; Bilirubin, Total 0.6 mg/dL (0.2-1.0); Calcium 8.4 mg/dL (8.5-10.1); Magnesium 2.2 mg/dL (1.6-2.6); Phosphorus 3.2 mg/dL (2.5-4.90); Total Protein 6.5 g/dL (6.4-8.2)
[2020-01-01] MEDS: PIPERACILLIN-TAZO 4.5GM 100 ML IV SCH ×3 (05:46→22:00)
[2020-01-01] MEDS: MORPHINE SULF INJ 2 MG/ML SYRINGE 1ML IV SCH ×3 (05:46→22:00)
[2020-01-01] MEDS: METOCLOPRAMIDE HCL 5MG/ml INJ 2ml VIAL IV SCH ×3 (05:46→22:00)
[2020-01-01] MEDS: SUCRALFATE 1 GM/10 ML ORAL SUSP GT SCH ×4 (06:49→22:00)
[2020-01-01] MEDS ORDERED: POTASSIUM CHL 20MEQ/100ML 100 ML IV ONE (09:15)
[2020-01-01] MEDS: PANTOPRAZOLE 40 MG/10 ML VIAL INJ IV SCH ×2 (10:00→22:00)
[2020-01-01] MEDS: SODIUM CHLOR 0.9% PF (SALINE LOCK) 10ML VIAL/SYR IV SCH ×2 (10:00→22:00)
[2020-01-01] MEDS: ENOXAPARIN SOD 40 MG/0.4 ML SYRINGE SC SCH (10:23)
[2020-01-01] MEDS: METOPROLOL TARTRATE 25 MG TAB PO SCH ×2 (10:34→22:00)
[2020-01-01] MEDS: DexMEDEtomidine 400 MCG in D5W 5% 96 ML IV SCH (11:45)
[2020-01-01] MEDS ORDERED: POTASSIUM EFFERVESENT TAB 25 MEQ GT ONE (16:00)
[2020-01-01] MEDS ORDERED: FUROSEMIDE 40 MG/4 ML VIAL IV ONE (16:00)
[2020-01-01] MEDS: Osmolite 1.2 Cal One Liter GT SCH (20:00)
[2020-01-01] MEDS ORDERED: TPN PER PHARMACY IV NR ×11 (20:00)
[2020-01-01] MEDS: LORazepam 2MG/ML-1ML VIAL IV PRN (20:10)
[2020-01-01] MEDS: ATORVASTATIN 20 MG TAB PO SCH (22:00)
[2020-01-02] VITALS (54 sets, daily range): BP systolic 76–188; BP diastolic 29–118
[2020-01-02] MEDS: ACCU-CHEK COMFORT CURVE STRIP VI SCH ×4 (00:22→18:00)
[2020-01-02] MEDS: InsuLIN REG 1unit/0.01ml Soln (100units/ml) SC SCH ×4 (00:23→18:18)
[2020-01-02] MEDS ORDERED: LABETALOL HCL 5 MG/ML 4ML SYRINGE IV ONE (00:45)
[2020-01-02] MEDS: CIPROFLOXACIN 0.3%OPTH(EYE) SOL 5ML LEFTEYE SCH ×3 (02:00→10:09)
[2020-01-02] MEDS: ACETAMINOPHEN 325 MG TAB PO PRN (03:20)
[2020-01-02] MEDS: MIDAZOLAM DRIP 50 mg/50mL 50 ML IV SCH (03:59)
[2020-01-02 04:51] LABS: Basophils # (auto) 0 10 ^3/uL (0-0.2); Eosinophils # (auto) 0 10 ^3/uL (0-0.8); Eosinophils % (auto) 0.2 % (0.0-7.0); Lymphocytes # (auto) 0.4 10 ^3/uL (0.4-5.4); Monocytes # (auto) 0.8 10 ^3/uL (0-1.3); Red Cell Distribution Width 13.8 % (11.8-14.3)
[2020-01-02 04:52] LABS: Basophils % (auto) 0.2 % (0.0-2.0); Hematocrit 37.8 % (41.0-53.0); Hemoglobin 13.1 g/dL (13.5-17.5); Lymphocytes % (auto) 3.5 % (10.0-50.0); Mean Corpuscular Hemoglobin 33.5 pg (28.0-32.0); Mean Corpuscular Hgb Conc. 34.8 g/dL (32.0-36.0); Mean Corpuscular Volume 96.2 fL (80.0-100.0); Neutrophils # (auto) 11.4 10 ^3/uL (1.6-8.6); Neutrophils % (auto) 90.1 % (37.0-80.0); Platelet Count (auto) 451 10^3/uL (140-450); Red Blood Cells 3.92 10^6/uL (4.5-5.90); White Blood Cell 12.6 10^3/uL (4.4-10.8)
[2020-01-02 05:12] LABS: Calcium 8.7 mg/dL (8.5-10.1); Potassium 3.1 mmol/L (3.5-5.1)
[2020-01-02 05:17] LABS: Albumin 2.6 g/dL (3.4-5.0); BUN/Creatinine Ratio 22.2; Bilirubin, Total 0.8 mg/dL (0.2-1.0); Magnesium 2.4 mg/dL (1.6-2.6); Phosphorus 2.3 mg/dL (2.5-4.90); Total Protein 7.4 g/dL (6.4-8.2)
[2020-01-02] MEDS: PIPERACILLIN-TAZO 4.5GM 100 ML IV SCH ×3 (05:54→22:06)
[2020-01-02] MEDS: MORPHINE SULF INJ 2 MG/ML SYRINGE 1ML IV SCH (05:54)
[2020-01-02] MEDS: METOCLOPRAMIDE HCL 5MG/ml INJ 2ml VIAL IV SCH ×3 (05:54→22:07)
[2020-01-02] MEDS: SUCRALFATE 1 GM/10 ML ORAL SUSP GT SCH ×4 (06:30→22:06)
[2020-01-02] MEDS ORDERED: POTASSIUM CHL 20MEQ/100ML 100 ML IV ONE (09:00)
[2020-01-02] MEDS: PANTOPRAZOLE 40 MG/10 ML VIAL INJ IV SCH ×2 (10:09→22:06)
[2020-01-02] MEDS: SODIUM CHLOR 0.9% PF (SALINE LOCK) 10ML VIAL/SYR IV SCH ×2 (10:09→22:06)
[2020-01-02] MEDS: ENOXAPARIN SOD 40 MG/0.4 ML SYRINGE SC SCH (10:10)
[2020-01-02] MEDS: METOPROLOL TARTRATE 25 MG TAB PO SCH ×2 (10:10→22:00)
[2020-01-02] MEDS ORDERED: MORPHINE SULF INJ 2 MG/ML SYRINGE 1ML IV PRN (10:15)
[2020-01-02] MEDS ORDERED: DOXYCYCLINE 100 MG TAB/CAP PO ONE ×2 (10:30→15:30)
[2020-01-02] MEDS ORDERED: POTASSIUM CHL 20MEQ/100ML 100 ML IV SCH (11:00)
[2020-01-02] MEDS ORDERED: POTASSIUM PHOSPHATE 44 MEQ in D5W 5% 250 ML IV ONE (12:00)
[2020-01-02] MEDS: DexMEDEtomidine 400 MCG in D5W 5% 96 ML IV SCH (13:16)
[2020-01-02] MEDS ORDERED: Acetam/CODEINE 120mg/12mg per 5mL UD GT PRN (16:15)
[2020-01-02] MEDS ORDERED: SODIUM CHLORIDE 0.9 % NEB SOLN 3ML NEB ONE (16:23)
[2020-01-02] MEDS ORDERED: [UNRECOGNIZED DRUG - OTHER] IV NR ×11 (20:00)
[2020-01-02] MEDS: Osmolite 1.2 Cal One Liter GT SCH (20:00)
[2020-01-02] MEDS ORDERED: SODIUM CHLORIDE IV NR ×11 (20:00)
[2020-01-02] MEDS ORDERED: SODIUM PHOSPHATES IV NR ×11 (20:00)
[2020-01-02] MEDS ORDERED: FAT EMULSION IV NR ×11 (20:00)
[2020-01-02] MEDS: HYDROcodone-ACET 10/325MG TAB PO PRN (21:45)
[2020-01-02] MEDS: ATORVASTATIN 20 MG TAB PO SCH (22:07)
[2020-01-02] MEDS: DOXYCYCLINE 100 MG TAB/CAP PO SCH (22:07)
[2020-01-02 23:30] LABS: Urine Bacteria FEW /hpf (None Seen); Urine Blood 1+ /uL (Negative); Urine WBC 3 /hpf (0 - 3)
[2020-01-03] VITALS (65 sets, daily range): BP systolic 109–178; BP diastolic 66–116
[2020-01-03] MEDS: InsuLIN REG 1unit/0.01ml Soln (100units/ml) SC SCH ×4 (01:12→18:00)
[2020-01-03] MEDS: ACETAMINOPHEN 650 mg PER 20 mL UD GT PRN (02:52)
[2020-01-03] MEDS: MIDAZOLAM DRIP 50 mg/50mL 50 ML IV SCH (03:59)
[2020-01-03 04:43] LABS: Albumin 2.2 g/dL (3.4-5.0); Calcium 8.5 mg/dL (8.5-10.1); Magnesium 2.5 mg/dL (1.6-2.6); Potassium 3.4 mmol/L (3.5-5.1)
[2020-01-03 04:48] LABS: BUN/Creatinine Ratio 27.1; Bilirubin, Total 0.5 mg/dL (0.2-1.0); Phosphorus 2.8 mg/dL (2.5-4.90); Total Protein 6.7 g/dL (6.4-8.2)
[2020-01-03] MEDS: ACCU-CHEK COMFORT CURVE STRIP VI SCH ×4 (06:03→17:53)
[2020-01-03] MEDS: METOCLOPRAMIDE HCL 5MG/ml INJ 2ml VIAL IV SCH ×3 (06:04→21:34)
[2020-01-03] MEDS: PIPERACILLIN-TAZO 4.5GM 100 ML IV SCH ×3 (06:04→21:39)
[2020-01-03] MEDS: SUCRALFATE 1 GM/10 ML ORAL SUSP GT SCH ×4 (06:05→21:36)
[2020-01-03] MEDS: LORazepam 2MG/ML-1ML VIAL IV PRN ×2 (08:22→17:06)
[2020-01-03] MEDS: HYDROcodone-ACET 10/325MG TAB PO PRN (08:29)
[2020-01-03] MEDS ORDERED: POTASSIUM EFFERVESENT TAB 25 MEQ GT ONE (09:15)
[2020-01-03] MEDS ORDERED: POTASSIUM CHL 20MEQ/100ML 100 ML IV ONE (09:30)
[2020-01-03] MEDS: DOXYCYCLINE 100 MG TAB/CAP PO SCH ×2 (10:33→21:34)
[2020-01-03] MEDS: PANTOPRAZOLE 40 MG/10 ML VIAL INJ IV SCH ×2 (10:33→21:34)
[2020-01-03] MEDS: ENOXAPARIN SOD 40 MG/0.4 ML SYRINGE SC SCH (10:33)
[2020-01-03] MEDS: METOPROLOL TARTRATE 25 MG TAB PO SCH ×2 (10:34→21:34)
[2020-01-03] MEDS: SODIUM CHLOR 0.9% PF (SALINE LOCK) 10ML VIAL/SYR IV SCH ×2 (10:35→21:37)
[2020-01-03] MEDS: ONDANSETRON HCL 4 MG/2 ML VIAL IV PRN (12:18)
[2020-01-03] MEDS: DexMEDEtomidine 400 MCG in D5W 5% 96 ML IV SCH (13:16)
[2020-01-03] MEDS ORDERED: METOPROLOL TARTRATE 50 MG TAB PO PRN (18:45)
[2020-01-03] MEDS ORDERED: TPN PER PHARMACY IV NR ×11 (20:00)
[2020-01-03] MEDS: Osmolite 1.2 Cal One Liter GT SCH (20:33)
[2020-01-03] MEDS: ATORVASTATIN 20 MG TAB PO SCH (21:34)
[2020-01-04] VITALS (65 sets, daily range): BP systolic 110–165; BP diastolic 64–103
[2020-01-04] MEDS: ACCU-CHEK COMFORT CURVE STRIP VI SCH ×5 (00:03→23:39)
[2020-01-04] MEDS: InsuLIN REG 1unit/0.01ml Soln (100units/ml) SC SCH ×5 (00:03→23:42)
[2020-01-04] MEDS: MIDAZOLAM DRIP 50 mg/50mL 50 ML IV SCH (03:59)
[2020-01-04 05:47] LABS: Potassium 3.7 mmol/L (3.5-5.1)
[2020-01-04 05:54] LABS: Albumin 2.1 g/dL (3.4-5.0); BUN/Creatinine Ratio 25.5; Bilirubin, Total 0.4 mg/dL (0.2-1.0); Calcium 8.3 mg/dL (8.5-10.1); Magnesium 2.4 mg/dL (1.6-2.6); Phosphorus 3.3 mg/dL (2.5-4.90); Total Protein 6.3 g/dL (6.4-8.2)
[2020-01-04] MEDS: SUCRALFATE 1 GM/10 ML ORAL SUSP GT SCH ×4 (06:27→22:07)
[2020-01-04] MEDS: METOCLOPRAMIDE HCL 5MG/ml INJ 2ml VIAL IV SCH ×3 (06:27→22:07)
[2020-01-04] MEDS: PIPERACILLIN-TAZO 4.5GM 100 ML IV SCH ×2 (06:31→14:34)
[2020-01-04] MEDS: PANTOPRAZOLE 40 MG/10 ML VIAL INJ IV SCH ×2 (09:31→22:07)
[2020-01-04] MEDS: ENOXAPARIN SOD 40 MG/0.4 ML SYRINGE SC SCH (09:31)
[2020-01-04] MEDS: DOXYCYCLINE 100 MG TAB/CAP PO SCH ×2 (09:31→22:07)
[2020-01-04] MEDS: METOPROLOL TARTRATE 25 MG TAB PO SCH ×2 (09:32→22:08)
[2020-01-04] MEDS: SODIUM CHLOR 0.9% PF (SALINE LOCK) 10ML VIAL/SYR IV SCH ×2 (09:32→22:08)
[2020-01-04] MEDS: levoFLOXacin 750MG 150 ML IV SCH (16:33)
[2020-01-04] MEDS ORDERED: TPN PER PHARMACY IV NR ×11 (20:00)
[2020-01-04] MEDS: Osmolite 1.2 Cal One Liter GT SCH (20:46)
[2020-01-04] MEDS: ATORVASTATIN 20 MG TAB PO SCH (22:07)
[2020-01-05] VITALS (21 sets, daily range): BP systolic 134–161; BP diastolic 87–107
[2020-01-05] MEDS: MIDAZOLAM DRIP 50 mg/50mL 50 ML IV SCH (03:59)
[2020-01-05 05:26] LABS: Basophils # (auto) 0 10 ^3/uL (0-0.2); Basophils % (auto) 0.5 % (0.0-2.0); Eosinophils # (auto) 0.1 10 ^3/uL (0-0.8); Eosinophils % (auto) 1.3 % (0.0-7.0); Hematocrit 34.4 % (41.0-53.0); Hemoglobin 11.6 g/dL (13.5-17.5); Lymphocytes # (auto) 1.2 10 ^3/uL (0.4-5.4); Lymphocytes % (auto) 10.7 % (10.0-50.0); Mean Corpuscular Hemoglobin 33.2 pg (28.0-32.0); Mean Corpuscular Hgb Conc. 33.8 g/dL (32.0-36.0); Mean Corpuscular Volume 98.2 fL (80.0-100.0); Monocytes # (auto) 1.2 10 ^3/uL (0-1.3); Monocytes % (auto) 11.3 % (0.0-12.0); Neutrophils # (auto) 8.4 10 ^3/uL (1.6-8.6); Neutrophils % (auto) 76.2 % (37.0-80.0); Platelet Count (auto) 342 10^3/uL (140-450); Red Cell Distribution Width 13.9 % (11.8-14.3)
[2020-01-05 05:51] LABS: Albumin 2.3 g/dL (3.4-5.0); Calcium 8.8 mg/dL (8.5-10.1); Magnesium 2.5 mg/dL (1.6-2.6); Potassium 3.7 mmol/L (3.5-5.1)
[2020-01-05 05:58] LABS: Bilirubin, Total 0.4 mg/dL (0.2-1.0); Phosphorus 3.7 mg/dL (2.5-4.90); Total Protein 6.6 g/dL (6.4-8.2)
[2020-01-05] MEDS: InsuLIN REG 1unit/0.01ml Soln (100units/ml) SC SCH ×4 (06:37→23:57)
[2020-01-05] MEDS: ACCU-CHEK COMFORT CURVE STRIP VI SCH ×4 (06:38→23:58)
[2020-01-05] MEDS: SUCRALFATE 1 GM/10 ML ORAL SUSP GT SCH ×4 (06:38→21:11)
[2020-01-05] MEDS: LORazepam 2MG/ML-1ML VIAL IV PRN ×2 (06:38→18:36)
[2020-01-05] MEDS: METOCLOPRAMIDE HCL 5MG/ml INJ 2ml VIAL IV SCH ×3 (06:41→21:11)
[2020-01-05] MEDS: DexMEDEtomidine 400 MCG in D5W 5% 96 ML IV SCH ×2 (07:41→13:16)
[2020-01-05] MEDS: SODIUM CHLOR 0.9% PF (SALINE LOCK) 10ML VIAL/SYR IV SCH ×2 (10:08→21:11)
[2020-01-05] MEDS: levoFLOXacin 750MG 150 ML IV SCH (10:08)
[2020-01-05] MEDS: PANTOPRAZOLE 40 MG/10 ML VIAL INJ IV SCH ×2 (10:08→21:11)
[2020-01-05] MEDS: ENOXAPARIN SOD 40 MG/0.4 ML SYRINGE SC SCH (10:09)
[2020-01-05] MEDS: METOPROLOL TARTRATE 25 MG TAB PO SCH ×2 (10:09→21:13)
[2020-01-05] MEDS: DOXYCYCLINE 100 MG TAB/CAP PO SCH ×2 (10:09→21:12)
[2020-01-05] MEDS: HYDROcodone-ACET 10/325MG TAB PO SCH (16:38)
[2020-01-05] MEDS ORDERED: TPN PER PHARMACY IV NR ×11 (20:00)
[2020-01-05] MEDS: Osmolite 1.2 Cal One Liter GT SCH (21:11)
[2020-01-05] MEDS: ATORVASTATIN 20 MG TAB PO SCH (21:12)
[2020-01-05] MEDS: ONDANSETRON HCL 4 MG/2 ML VIAL IV PRN (23:39)
[2020-01-06] VITALS (18 sets, daily range): BP systolic 116–148; BP diastolic 76–94
[2020-01-06] MEDS: MIDAZOLAM DRIP 50 mg/50mL 50 ML IV SCH (03:59)
[2020-01-06] MEDS: ACETAMINOPHEN 650 mg PER 20 mL UD GT PRN (04:29)
[2020-01-06 04:39] LABS: Albumin 2.4 g/dL (3.4-5.0); Calcium 9.2 mg/dL (8.5-10.1); Magnesium 2.3 mg/dL (1.6-2.6)
[2020-01-06 04:46] LABS: BUN/Creatinine Ratio 29.5; Bilirubin, Total 0.6 mg/dL (0.2-1.0); Phosphorus 5.1 mg/dL (2.5-4.90); Pre Albumin 22.2 mg/dL (20.0-40.0); Total Protein 6.8 g/dL (6.4-8.2)
[2020-01-06] MEDS: InsuLIN REG 1unit/0.01ml Soln (100units/ml) SC SCH ×3 (06:00→18:00)
[2020-01-06] MEDS: METOCLOPRAMIDE HCL 5MG/ml INJ 2ml VIAL IV SCH ×3 (06:00→21:27)
[2020-01-06] MEDS: ACCU-CHEK COMFORT CURVE STRIP VI SCH ×3 (06:10→18:22)
[2020-01-06] MEDS: HYDROcodone-ACET 10/325MG TAB PO SCH ×4 (06:45→18:21)
[2020-01-06] MEDS: ONDANSETRON HCL 4 MG/2 ML VIAL IV PRN (06:46)
[2020-01-06] MEDS: SUCRALFATE 1 GM/10 ML ORAL SUSP GT SCH ×4 (06:46→21:26)
[2020-01-06] MEDS ORDERED: MORPHINE SULF INJ 2 MG/ML SYRINGE 1ML IV ONE (08:45)
[2020-01-06] MEDS ORDERED: MORPHINE SULF INJ 2 MG/ML SYRINGE 1ML ONE (08:50)
[2020-01-06] MEDS: levoFLOXacin 750MG 150 ML IV SCH (09:34)
[2020-01-06] MEDS: SODIUM CHLOR 0.9% PF (SALINE LOCK) 10ML VIAL/SYR IV SCH ×2 (09:34→21:27)
[2020-01-06] MEDS: METOPROLOL TARTRATE 25 MG TAB PO SCH ×2 (09:35→21:29)
[2020-01-06] MEDS: ENOXAPARIN SOD 40 MG/0.4 ML SYRINGE SC SCH (09:36)
[2020-01-06] MEDS: DOXYCYCLINE 100 MG TAB/CAP PO SCH ×2 (09:36→21:29)
[2020-01-06] MEDS: PANTOPRAZOLE 40 MG/10 ML VIAL INJ IV SCH ×2 (09:37→21:26)
[2020-01-06] MEDS: DexMEDEtomidine 400 MCG in D5W 5% 96 ML IV SCH (12:20)
[2020-01-06] MEDS ORDERED: TPN PER PHARMACY 0 ML IV SCH (13:45)
[2020-01-06] MEDS: MORPHINE SULF INJ 2 MG/ML SYRINGE 1ML IV PRN (18:23)
[2020-01-06] MEDS ORDERED: TPN PER PHARMACY IV NR ×9 (20:00)
[2020-01-06] MEDS: Osmolite 1.2 Cal One Liter GT SCH (20:00)
[2020-01-06] MEDS: ATORVASTATIN 20 MG TAB PO SCH (21:28)
[2020-01-07] VITALS (10 sets, daily range): BP systolic 116–157; BP diastolic 74–103
[2020-01-07] MEDS: HYDROcodone-ACET 10/325MG TAB PO SCH ×5 (00:09→23:42)
[2020-01-07] MEDS: InsuLIN REG 1unit/0.01ml Soln (100units/ml) SC SCH ×6 (00:11→23:56)
[2020-01-07] MEDS: ACCU-CHEK COMFORT CURVE STRIP VI SCH ×5 (00:11→23:42)
[2020-01-07] MEDS: MORPHINE SULF INJ 2 MG/ML SYRINGE 1ML IV PRN ×4 (01:24→23:43)
[2020-01-07] MEDS: METOCLOPRAMIDE HCL 5MG/ml INJ 2ml VIAL IV SCH ×2 (05:48→13:31)
[2020-01-07] MEDS: SUCRALFATE 1 GM/10 ML ORAL SUSP GT SCH ×4 (05:49→20:16)
[2020-01-07 05:57] LABS: Albumin 2.2 g/dL (3.4-5.0); Calcium 8.8 mg/dL (8.5-10.1); Magnesium 2.4 mg/dL (1.6-2.6); Potassium 3.5 mmol/L (3.5-5.1)
[2020-01-07 06:01] LABS: BUN/Creatinine Ratio 34.9; Bilirubin, Total 0.5 mg/dL (0.2-1.0); Phosphorus 3.7 mg/dL (2.5-4.90); Total Protein 6.2 g/dL (6.4-8.2)
[2020-01-07] MEDS: DOXYCYCLINE 100 MG TAB/CAP PO SCH (09:51)
[2020-01-07] MEDS: ENOXAPARIN SOD 40 MG/0.4 ML SYRINGE SC SCH (09:51)
[2020-01-07] MEDS: SODIUM CHLOR 0.9% PF (SALINE LOCK) 10ML VIAL/SYR IV SCH ×2 (09:51→20:17)
[2020-01-07] MEDS: levoFLOXacin 750MG 150 ML IV SCH (09:51)
[2020-01-07] MEDS: PANTOPRAZOLE 40 MG/10 ML VIAL INJ IV SCH ×2 (09:51→20:17)
[2020-01-07] MEDS: METOPROLOL TARTRATE 25 MG TAB PO SCH ×2 (09:52→20:17)
[2020-01-07] MEDS ORDERED: POTASSIUM CHL 20MEQ/100ML 100 ML IV ONE (11:15)
[2020-01-07] MEDS: Osmolite 1.2 Cal One Liter GT SCH (19:41)
[2020-01-07] MEDS ORDERED: TPN PER PHARMACY IV NR ×10 (20:00)
[2020-01-07] MEDS: ATORVASTATIN 20 MG TAB PO SCH (20:17)
[2020-01-08] VITALS (10 sets, daily range): BP systolic 129–145; BP diastolic 63–98
[2020-01-08 03:30] LABS: Albumin 2.4 g/dL (3.4-5.0); Calcium 8.8 mg/dL (8.5-10.1); Magnesium 2.3 mg/dL (1.6-2.6); Potassium 3.3 mmol/L (3.5-5.1)
[2020-01-08 03:36] LABS: BUN/Creatinine Ratio 29.1; Bilirubin, Total 0.6 mg/dL (0.2-1.0); Total Protein 6.8 g/dL (6.4-8.2)
[2020-01-08] MEDS: ACETAMINOPHEN 650 mg PER 20 mL UD GT PRN (03:49)
[2020-01-08] MEDS: HYDROcodone-ACET 10/325MG TAB PO SCH ×4 (05:54→23:46)
[2020-01-08] MEDS: ACCU-CHEK COMFORT CURVE STRIP VI SCH ×4 (05:55→23:46)
[2020-01-08] MEDS: InsuLIN REG 1unit/0.01ml Soln (100units/ml) SC SCH ×4 (05:56→23:51)
[2020-01-08] MEDS: SUCRALFATE 1 GM/10 ML ORAL SUSP GT SCH ×4 (06:01→21:21)
[2020-01-08] MEDS ORDERED: POTASSIUM PHOSPHATE 26.4 MEQ in SODIUM CHL 0.9% 100 ML IV ONE (09:45)
[2020-01-08] MEDS: levoFLOXacin 750MG 150 ML IV SCH (09:51)
[2020-01-08] MEDS: PANTOPRAZOLE 40 MG/10 ML VIAL INJ IV SCH ×2 (09:51→21:21)
[2020-01-08] MEDS: METOPROLOL TARTRATE 25 MG TAB PO SCH ×2 (09:52→21:22)
[2020-01-08] MEDS: ENOXAPARIN SOD 40 MG/0.4 ML SYRINGE SC SCH (09:52)
[2020-01-08] MEDS: SODIUM CHLOR 0.9% PF (SALINE LOCK) 10ML VIAL/SYR IV SCH ×2 (09:52→21:22)
[2020-01-08] MEDS ORDERED: TPN PER PHARMACY IV NR ×10 (20:00)
[2020-01-08] MEDS: Osmolite 1.2 Cal One Liter GT SCH (20:00)
[2020-01-08] MEDS: ATORVASTATIN 20 MG TAB PO SCH (21:24)
[2020-01-09] VITALS (11 sets, daily range): BP systolic 113–146; BP diastolic 73–99
[2020-01-09 03:42] LABS: Albumin 2.5 g/dL (3.4-5.0); Calcium 8.6 mg/dL (8.5-10.1); Magnesium 2.3 mg/dL (1.6-2.6); Potassium 3.5 mmol/L (3.5-5.1)
[2020-01-09 03:47] LABS: BUN/Creatinine Ratio 30.9; Bilirubin, Total 0.7 mg/dL (0.2-1.0); Phosphorus 3.2 mg/dL (2.5-4.90); Total Protein 6.8 g/dL (6.4-8.2)
[2020-01-09] MEDS: HYDROcodone-ACET 10/325MG TAB PO SCH ×3 (05:11→17:24)
[2020-01-09] MEDS: SUCRALFATE 1 GM/10 ML ORAL SUSP GT SCH ×4 (05:11→22:05)
[2020-01-09] MEDS: ACCU-CHEK COMFORT CURVE STRIP VI SCH ×3 (05:12→18:04)
[2020-01-09] MEDS: InsuLIN REG 1unit/0.01ml Soln (100units/ml) SC SCH ×3 (05:22→18:06)
[2020-01-09] MEDS: SODIUM CHLOR 0.9% PF (SALINE LOCK) 10ML VIAL/SYR IV SCH ×2 (09:50→22:03)
[2020-01-09] MEDS: METOPROLOL TARTRATE 25 MG TAB PO SCH ×2 (09:50→22:04)
[2020-01-09] MEDS: ENOXAPARIN SOD 40 MG/0.4 ML SYRINGE SC SCH (09:50)
[2020-01-09] MEDS: levoFLOXacin 750MG 150 ML IV SCH (09:50)
[2020-01-09] MEDS: PANTOPRAZOLE 40 MG/10 ML VIAL INJ IV SCH (09:50)
[2020-01-09] MEDS ORDERED: TPN PER PHARMACY IV NR ×11 (20:00)
[2020-01-09] MEDS: Osmolite 1.2 Cal One Liter GT SCH (20:25)
[2020-01-09] MEDS: ATORVASTATIN 20 MG TAB PO SCH (22:05)
[2020-01-10] VITALS (12 sets, daily range): BP systolic 130–155; BP diastolic 75–103
[2020-01-10] MEDS: InsuLIN REG 1unit/0.01ml Soln (100units/ml) SC SCH ×5 (00:20→23:19)
[2020-01-10] MEDS: ACCU-CHEK COMFORT CURVE STRIP VI SCH ×5 (00:20→23:19)
[2020-01-10] MEDS: ACETAMINOPHEN 650 mg PER 20 mL UD GT PRN (02:05)
[2020-01-10] MEDS: LORazepam 2MG/ML-1ML VIAL IV PRN (03:08)
[2020-01-10] MEDS: HYDROcodone-ACET 10/325MG TAB PO SCH ×5 (05:58→23:19)
[2020-01-10 06:06] LABS: Albumin 2.5 g/dL (3.4-5.0); Calcium 8.8 mg/dL (8.5-10.1); Magnesium 2.3 mg/dL (1.6-2.6); Potassium 3.6 mmol/L (3.5-5.1)
[2020-01-10 06:11] LABS: BUN/Creatinine Ratio 34.7; Bilirubin, Total 0.6 mg/dL (0.2-1.0); Phosphorus 3.5 mg/dL (2.5-4.90); Total Protein 6.9 g/dL (6.4-8.2)
[2020-01-10] MEDS: SUCRALFATE 1 GM/10 ML ORAL SUSP GT SCH ×4 (06:17→22:52)
[2020-01-10] MEDS: METOPROLOL TARTRATE 25 MG TAB PO SCH ×2 (10:14→22:52)
[2020-01-10] MEDS: levoFLOXacin 750MG 150 ML IV SCH (10:14)
[2020-01-10] MEDS: SODIUM CHLOR 0.9% PF (SALINE LOCK) 10ML VIAL/SYR IV SCH ×2 (10:15→22:52)
[2020-01-10] MEDS: ENOXAPARIN SOD 40 MG/0.4 ML SYRINGE SC SCH (10:15)
[2020-01-10] MEDS: PANTOPRAZOLE 40 MG/10 ML VIAL INJ IV SCH (10:15)
[2020-01-10] MEDS ORDERED: Jevity 1.2 Cal/Fiber 1 Liter GT SCH (12:15)
[2020-01-10] MEDS: ATORVASTATIN 20 MG TAB PO SCH (22:52)
[2020-01-11 02:00] VITALS: BP 130/72
[2020-01-11 05:17] VITALS: BP 130/81
[2020-01-11] MEDS: HYDROcodone-ACET 10/325MG TAB PO SCH ×3 (05:58→18:11)
[2020-01-11] MEDS: ACCU-CHEK COMFORT CURVE STRIP VI SCH ×3 (05:59→17:33)
[2020-01-11] MEDS: SUCRALFATE 1 GM/10 ML ORAL SUSP GT SCH ×3 (05:59→18:11)
[2020-01-11] MEDS: InsuLIN REG 1unit/0.01ml Soln (100units/ml) SC SCH ×3 (06:00→17:33)
[2020-01-11 08:14] VITALS: BP 131/94
[2020-01-11] MEDS: ENOXAPARIN SOD 40 MG/0.4 ML SYRINGE SC SCH (10:24)
[2020-01-11] MEDS: PANTOPRAZOLE 40 MG/10 ML VIAL INJ IV SCH (10:24)
[2020-01-11] MEDS: METOPROLOL TARTRATE 25 MG TAB PO SCH (10:25)
[2020-01-11] MEDS: levoFLOXacin 750MG 150 ML IV SCH (10:25)
[2020-01-11 12:14] VITALS: BP 134/73
[2020-01-11 16:01] VITALS: BP 141/93
== END 2020-01-11 19:25 | disposition short-term general hospital (02) | DRG 4 ==
LOC: ER 15:05 → TELE 15:06 → TELE-WESTW 22:02 → DOU IN ICU 12-09 19:12 → ICU WEST 12-12 15:41 → DOU IN ICU 01-03 13:14 → TELE-CENTR 01-09 11:36
PROVIDERS: ADMIT Hospitalist; ATTEND Internal Medicine Nephrology
PROC: 02HV33Z Insertion of Infusion Device into Superior Vena Cava, Percutaneous Approach (ICD-10-PCS; 2019-12-11)
PROC: 5A1955Z Respiratory Ventilation, Greater than 96 Consecutive Hours (ICD-10-PCS; 2019-12-12)
PROC: 0BH17EZ Insertion of Endotracheal Airway into Trachea, Via Natural or Artificial Opening (ICD-10-PCS; 2019-12-12)
PROC: 0DH63UZ Insertion of Feeding Device into Stomach, Percutaneous Approach (ICD-10-PCS; 2019-12-14)
PROC: 0B110F4 Bypass Trachea to Cutaneous with Tracheostomy Device, Open Approach (ICD-10-PCS; principal; 2019-12-24 13:43)
DX: G61.0 Guillain-Barre syndrome (principal); J96.01 Acute respiratory failure with hypoxia; J69.0 Pneumonitis due to inhalation of food and vomit; G92 Toxic encephalopathy; E87.1 Hypo-osmolality and hyponatremia; R57.9 Shock, unspecified; Z99.11 Dependence on respirator [ventilator] status; E44.0 Moderate protein-calorie malnutrition; I16.1 Hypertensive emergency; Z68.1 Body mass index [BMI] 19.9 or less, adult; G51.0 Bell's palsy; G89.29 Other chronic pain; M19.90 Unspecified osteoarthritis, unspecified site; E78.5 Hyperlipidemia, unspecified; G90.2 Horner's syndrome; K29.80 Duodenitis without bleeding; R13.10 Dysphagia, unspecified; K59.00 Constipation, unspecified; K82.8 Other specified diseases of gallbladder; M54.5 Low back pain; Z20.828 Contact with and (suspected) exposure to other viral communicable diseases; Z79.899 Other long term (current) drug therapy
CPT/HCPCS: 36415; 36569; 36600; 70450; 70551; 71045; 71250; 71260; 74018; 74177; 74178; 76604; 76705; 80048; 80053; 80061; 80307; 81001; 82040; 82533; 82805; 82945; 82962; 83036; 83605; 83735; 84100; 84132; 84157; 84439; 84443; 84478; 84484; 85025; 85610; 85730; 86644; 86645; 86664; 86703; 86850; 86900; 86901; 87040; 87070; 87077; 87081; 87086; 87186; 87205; 87529; 87804; 89051; 92610; 93005; 93306; 93886; 93970; 94002; 94003; 94640; 94760; 96361; 96374; 96375; 97110; 97163; 97530; A4605; A4618; C9113; G0378; J1450; J1561; J1815; J1956; J2001; J2185; J2250; J2405; J2543; J2704; J3480; J3490; J7042; J7060; J7131

== ENCOUNTER 2022-08-18 19:05 | Emergency (ER) | payer MEDICARE, MEDICAID ==
[~2022-08-18] VITALS: Ht 177.8 cm; Wt 165.0 kg
[2022-08-18 19:05] VITALS: BP 147/92
[~2022-08-18 19:05] MED LIST changes: -HYDR-1421 PO; +HYDR-531 PO; -IBUP-781 PO
[2022-08-18] MEDS ORDERED: BACITRACIN TOP OINT 1 UD PKG TOP ONE ×2 (19:44→20:00)
[2022-08-18] MEDS ORDERED: BACITRACIN INJ 50000 UNIT VIAL TOP ONE (19:45)
== END 2022-08-18 20:40 | disposition home or self-care (01) ==
LOC: ER 19:05
DX: S61.412A Laceration without foreign body of left hand, initial encounter (principal); W26.0XXA Contact with knife, initial encounter; Y93.89 Activity, other specified; Y92.89 Other specified places as the place of occurrence of the external cause; Y99.8 Other external cause status
CPT/HCPCS: 12001

== ENCOUNTER 2023-05-14 09:01 | Emergency (ER) | payer MEDICARE, MEDICAID, OTHER ==
[~2023-05-14] VITALS: Ht 170.2 cm; Wt 75.0 kg
[2023-05-14 09:16] VITALS: PULSE 75; RESP 15; O2SAT 96
[2023-05-14] MEDS ORDERED: SODIUM CHLORIDE 0.9% 1,000 ML IVB ONE (11:15)
[2023-05-14] MEDS ORDERED: ONDANSETRON HCL 4 MG/2 ML VIAL IV ONE (11:15)
[2023-05-14] MEDS ORDERED: HYDROmorphone HCL 2 MG/ML VL/or syr IV ONE (11:15)
[2023-05-14] MEDS ORDERED: IOHEXOL 300 MG/ML 100ML BOTTLE IJ ONE (11:31)
[2023-05-14 12:09] LABS: Basophils # (auto) 0 10 ^3/uL (0-0.2); Basophils % (auto) 0.1 % (0.0-2.0); Eosinophils # (auto) 0 10 ^3/uL (0-0.8); Eosinophils % (auto) 0.1 % (0.0-7.0); Hematocrit 45.8 % (41.0-53.0); Hemoglobin 15.8 g/dL (13.5-17.5); Lymphocytes # (auto) 0.9 10 ^3/uL (0.4-5.4); Lymphocytes % (auto) 8.2 % (10.0-50.0); Mean Corpuscular Hgb Conc. 34.5 g/dL (32.0-36.0); Mean Corpuscular Volume 98.7 fL (80.0-100.0); Monocytes # (auto) 0.5 10 ^3/uL (0-1.3); Monocytes % (auto) 4.6 % (0.0-12.0); Nucleated Red Blood Cells % 0.1 %; Red Blood Cells 4.64 10^6/uL (4.5-5.90); Red Cell Distribution Width 13.2 % (11.8-14.3); White Blood Cell 11.5 10^3/uL (4.4-10.8)
[2023-05-14 12:18] LABS: Alanine Aminotransferase 29 U/L (7-40); Albumin 4.5 g/dL (3.2-4.8); Alkaline Phosphatase 78 U/L (46-116); Anion Gap 6 (5-15); Aspartate Aminotransferase 35 U/L (13-40); BUN/Creatinine Ratio 9.9 (10.0-20.0); Blood Urea Nitrogen 8 mg/dL (9-23); Calcium 9.6 mg/dL (8.5-10.1); Carbon Dioxide 26 mmol/L (20-30); Chloride 108 mmol/L (98-107); Glucose 89 mg/dL (74-106); Potassium 3.7 mmol/L (3.5-5.1); Sodium 140 mmol/L (136-145)
[2023-05-14 12:19] LABS: Bilirubin, Total 1.7 mg/dL (0.2-1.0); Total Protein 6.7 g/dL (5.7-8.2)
[2023-05-14 12:37] LABS: Urine Bacteria NONE SEEN /hpf (None Seen); Urine Blood 2+ /uL (Negative); Urine Clarity Clear (Clear); Urine Color Colorless (Yellow); Urine Protein, UAD Negative (Negative); Urine Specific Gravity 1.009 (1.001-1.035); Urine Urobilinogen Normal (Negative); Urine WBC 2 /hpf (0 - 3)
[2023-05-14] MEDS ORDERED: NAPR-746 PO (16:10)
[2023-05-14] MEDS ORDERED: CYCL-837 PO (16:10)
[2023-05-14] MEDS ORDERED: ACET-1304 PO (16:10)
[2023-05-14 17:23] VITALS: BP 138/91; PULSE 91; RESP 16; TEMP 98; O2SAT 96
== END 2023-05-14 17:24 | disposition home or self-care (01) ==
LOC: ER 09:01 → EDUNIT# 09:01 → EDBD 09:01 → ER 17:24
DX: R07.89 Other chest pain (principal); M54.2 Cervicalgia; M79.671 Pain in right foot; Z79.899 Other long term (current) drug therapy; I10 Essential (primary) hypertension; E78.5 Hyperlipidemia, unspecified; V49.9XXA Car occupant (driver) (passenger) injured in unspecified traffic accident, initial encounter; Y93.89 Activity, other specified; Y92.410 Unspecified street and highway as the place of occurrence of the external cause; Y99.8 Other external cause status
CPT/HCPCS: 36415; 70450; 71045; 71260; 72125; 73630; 74177; 80053; 81001; 85025; 96361; 96374; 96375; 99285; J1170; J2405; J7030; Q9967

== ENCOUNTER → 2023-07-19 | Outpatient (CLI) | payer MEDICARE, MEDICAID ==
[~2023-07-19] MED LIST changes: +ACET-1304 PO; +CYCL-837 PO; +NAPR-746 PO
[2023-07-19 08:16] LABS: Basophils # (auto) 0 10 ^3/uL (0-0.2); Basophils % (auto) 0.4 % (0.0-2.0); Eosinophils # (auto) 0.1 10 ^3/uL (0-0.8); Eosinophils % (auto) 1.6 % (0.0-7.0); Hematocrit 44.6 % (41.0-53.0); Hemoglobin 15.4 g/dL (13.5-17.5); Lymphocytes # (auto) 1.6 10 ^3/uL (0.4-5.4); Lymphocytes % (auto) 36.5 % (10.0-50.0); Mean Corpuscular Hemoglobin 33.9 pg (28.0-32.0); Mean Corpuscular Hgb Conc. 34.4 g/dL (32.0-36.0); Mean Corpuscular Volume 98.5 fL (80.0-100.0); Monocytes # (auto) 0.3 10 ^3/uL (0-1.3); Monocytes % (auto) 8.1 % (0.0-12.0); Neutrophils # (auto) 2.3 10 ^3/uL (1.6-8.6); Neutrophils % (auto) 53.4 % (37.0-80.0); Nucleated Red Blood Cells % 0.3 %; Red Blood Cells 4.53 10^6/uL (4.5-5.90); Red Cell Distribution Width 13.3 % (11.8-14.3); White Blood Cell 4.3 10^3/uL (4.4-10.8)
[2023-07-19 08:55] LABS: Urine Bacteria NONE SEEN /hpf (None Seen); Urine Blood Negative /uL (Negative); Urine Clarity Clear (Clear); Urine Protein, UAD Negative (Negative); Urine Specific Gravity 1.009 (1.001-1.035); Urine Urobilinogen Normal (Negative); Urine WBC <1 /hpf (0 - 3)
[2023-07-19 08:56] LABS: Urine Color Straw (Yellow)
[2023-07-19 09:03] LABS: Alanine Aminotransferase 19 U/L (7-40); Alkaline Phosphatase 79 U/L (46-116); Anion Gap 4 (5-15); Aspartate Aminotransferase 16 U/L (13-40); BUN/Creatinine Ratio 12.4 (10.0-20.0); Blood Urea Nitrogen 11 mg/dL (9-23); Calcium 9.3 mg/dL (8.5-10.1); Carbon Dioxide 28 mmol/L (20-30); Chloride 106 mmol/L (98-107); Glucose 79 mg/dL (74-106); LDL Cholesterol 129 mg/dL (< 100); Potassium 4.1 mmol/L (3.5-5.1); Sodium 138 mmol/L (136-145); Triglycerides 108 mg/dL (< 150)
[2023-07-19 09:04] LABS: Albumin 4.5 g/dL (3.2-4.8); Bilirubin, Total 1.7 mg/dL (0.2-1.0); Cholesterol 182 mg/dL (< 200); HDL Cholesterol 43 mg/dL (40-59); Total Protein 6.3 g/dL (5.7-8.2)
== END | disposition home or self-care (01) ==
LOC: LAB 08:03
PROVIDERS: ATTEND Student in an Organized Health Care Education/Training Program
DX: Z12.11 Encounter for screening for malignant neoplasm of colon (principal); R73.9 Hyperglycemia, unspecified; I10 Essential (primary) hypertension
CPT/HCPCS: 36415; 80053; 80061; 81001; 82274; 83036; 84443; 85025

== ENCOUNTER → 2023-11-30 | Outpatient (CLI) | payer MEDICARE, MEDICAID | END | disposition home or self-care (01) | LOC: XYW 09:06 | PROVIDERS: ATTEND Internal Medicine | DX: I35.8 Other nonrheumatic aortic valve disorders (principal); I11.9 Hypertensive heart disease without heart failure | CPT/HCPCS: 93306 ==

== ENCOUNTER → 2024-05-24 | Outpatient (CLI) | payer MEDICARE, MEDICAID ==
[2024-05-24 09:24] LABS: Urine Bacteria None Seen /hpf (None Seen)
[2024-05-24 09:58] LABS: Basophils # (auto) 0 10 ^3/uL (0-0.2); Eosinophils # (auto) 0.1 10 ^3/uL (0-0.8); Hemoglobin 17.3 g/dL (13.5-17.5); Lymphocytes # (auto) 1.5 10 ^3/uL (0.4-5.4); Monocytes # (auto) 0.3 10 ^3/uL (0-1.3); Neutrophils # (auto) 2.4 10 ^3/uL (1.6-8.6); White Blood Cell 4.3 10^3/uL (4.4-10.8)
[2024-05-24 10:00] LABS: Basophils % (auto) 0.5 % (0.0-2.0); Eosinophils % (auto) 2.4 % (0.0-7.0); Hematocrit 48.8 % (41.0-53.0); Lymphocytes % (auto) 35.1 % (10.0-50.0); Mean Corpuscular Hgb Conc. 35.5 g/dL (32.0-36.0); Mean Corpuscular Volume 98.4 fL (80.0-100.0); Monocytes % (auto) 6.6 % (0.0-12.0); Neutrophils % (auto) 55.4 % (37.0-80.0); Nucleated Red Blood Cells % 0.6 %; Platelet Count (auto) 175 10^3/uL (140-450); Red Blood Cells 4.96 10^6/uL (4.5-5.90); Red Cell Distribution Width 13.6 % (11.8-14.3)
[2024-05-24 10:01] LABS: Urine Blood Negative /uL (Negative); Urine Clarity Clear (Clear); Urine Color Yellow (Yellow); Urine Hyaline Cast FEW /lpf (0 - 2); Urine Mucus FEW (None Seen); Urine Protein, UAD TRACE (Negative); Urine Specific Gravity 1.028 (1.001-1.035); Urine Squamous Epithelial Cell None Seen /hpf (<5); Urine Urobilinogen 2 mg/dL (Negative); Urine WBC < 1 /HPF (0-3); Urine pH 5.5 (5.0-9.0)
[2024-05-24 10:26] LABS: Alanine Aminotransferase 23 U/L (7-40); Alkaline Phosphatase 83 U/L (46-116); Anion Gap 7 (5-15); Aspartate Aminotransferase 16 U/L (13-40); BUN/Creatinine Ratio 8.7 (10.0-20.0); Bilirubin, Total 1.1 mg/dL (0.2-1.0); Calcium 10.2 mg/dL (8.7-10.4); Carbon Dioxide 27 mmol/L (20-31); Chloride 107 mmol/L (98-107); Glucose 87 mg/dL (74-106); HDL Cholesterol 46 mg/dL (40-59); Sodium 141 mmol/L (136-145); Total Protein 7.2 g/dL (5.7-8.2)
[2024-05-24 10:28] LABS: Blood Urea Nitrogen 8 mg/dL (9-23); Cholesterol 219 mg/dL (< 200); LDL Cholesterol 139 mg/dL (< 100); Triglycerides 204 mg/dL (< 150)
== END | disposition home or self-care (01) ==
LOC: LAB 08:57
PROVIDERS: ATTEND Student in an Organized Health Care Education/Training Program
DX: I10 Essential (primary) hypertension (principal); E55.9 Vitamin D deficiency, unspecified; R73.9 Hyperglycemia, unspecified
CPT/HCPCS: 36415; 80053; 80061; 81001; 82306; 83036; 84443; 85025

== ENCOUNTER → 2024-08-08 | Outpatient (CLI) | payer MEDICARE, MEDICAID ==
[~2024-08-08] MED LIST changes: +REGADENOSON 0.4 MG/5 ML SYRG IV ONE
--- NOTE | 2024-08-08 15:54 | DVHSR ---
APPROVED REPORT Exam: Nuclear Stress Test BMI: 0 Stress Test Details HR Max Heart Rate (APMHR): 156.809688 bpm Target HR (85% APMHR): 132.075508 bpm BP ECG Stress ECG Conclusion abnormal spect stress induced septal anterior and lateral wall ischemia this could also be 2/2 to poor image qualit yand artifact however this study is abnormal consider further ischemic eval/ cath lvef 67% NM EXAM: Myocardial Perfusion REST/STRESS Imaging Protocol: Rest Tc-99m/Stress Tc-99m 1 day Resting Data Rest SPECT myocardial perfusion imaging was performed in supine position 60 minutes following the int ravenous injection of 12.6 mCi of Tc-99m Sestamibi. Time of rest injection: 1149 Time of rest imagin Administration Route: IV Administration Site: Right Arm Pharmacologic Stress Pharmacologic stress test was performed by injecting Regadenoson 0.4 mg IV push followed by the intra venous injection of 27 mCi of Tc-99m Sestamibi. Time of stress injection: 1325 Time of stress imagin Administration Route: IV Administration Site: Right Arm Gated Stress SPECT was performed 60 minutes after stress injection. The images were gated to evaluate regional wall motion and calculate left ventricular ejection fracti on. Stress only was performed in the Supine position. Nuclear Conclusion Nuclear Findings: positive for ischemia abnormal spect stress induced septal anterior and lateral wall ischemia this could also be 2/2 to poor image qualit yand artifact however this study is abnormal consider further ischemic eval/ cath lvef 67%
== END | disposition home or self-care (01) ==
LOC: XYW 10:53
PROVIDERS: ATTEND Internal Medicine
DX: I25.9 Chronic ischemic heart disease, unspecified (principal); R07.9 Chest pain, unspecified
CPT/HCPCS: 78452; 93017; A9500; J2785

== ENCOUNTER 2025-03-26 09:45 | Outpatient (CLI) | payer MEDICARE, MEDICAID ==
[~2025-03-26 09:45] MED LIST changes: -REGADENOSON 0.4 MG/5 ML SYRG IV ONE
[2025-03-26 10:13] LABS: Hematocrit 45.1 % (41.0-53.0); Hemoglobin 15.8 g/dL (13.5-17.5); Mean Corpuscular Hemoglobin 34.5 pg (28.0-32.0); Mean Corpuscular Volume 98.3 fL (80.0-100.0); Nucleated Red Blood Cells % 0.1 %
[2025-03-26 10:17] LABS: Urine Protein, UAD Negative (Negative)
[2025-03-26 10:40] LABS: Alanine Aminotransferase 24 U/L (7-40); Albumin 4.6 g/dL (3.2-4.8); Alkaline Phosphatase 73 U/L (46-116); Anion Gap 9 (5-15); BUN/Creatinine Ratio 11.4 (10.0-20.0); Blood Urea Nitrogen 10 mg/dL (9-23); Calcium 9.6 mg/dL (8.7-10.4); Carbon Dioxide 27 mmol/L (20-31); Chloride 107 mmol/L (98-107); Cholesterol 196 mg/dL (< 200); Glucose 88 mg/dL (74-106); HDL Cholesterol 41 mg/dL (40-59); Potassium 4.4 mmol/L (3.5-5.1); Sodium 143 mmol/L (136-145); Total Protein 7.1 g/dL (5.7-8.2)
[2025-03-26 10:46] LABS: Bilirubin, Total 1.4 mg/dL (0.2-1.0); Triglycerides 155 mg/dL (< 150)
== END 2025-03-26 17:00 | disposition home or self-care (01) ==
LOC: LAB 09:45
PROVIDERS: ATTEND Student in an Organized Health Care Education/Training Program
DX: I10 Essential (primary) hypertension (principal); E55.9 Vitamin D deficiency, unspecified; E53.8 Deficiency of other specified B group vitamins; R73.9 Hyperglycemia, unspecified
CPT/HCPCS: 36415; 80053; 80061; 81001; 82306; 82607; 83036; 85025